=== PATIENT | male | born 1970 | race Caucasian/White ===

== ENCOUNTER 2017-07-09 23:06 | Observation (INO) | payer OTHER ==
[~2017-07-09] VITALS: Ht 182.9 cm; Wt 85.7 kg
[~2017-07-09 23:06] MED LIST: ALLOPURINOL100 MG PO; ASPIRIN81 MG PO; COREG3.125 MG PO; LASIX40 MG PO; LISINOPRIL10 MG PO; METOPROLOL TART25 MG PO; NITROSTAT0.3 MG SL; SPIRONOLACTONE25 MG PO; SYNTHROID125 MCG PO; XARELTO15 MG PO
--- OUTSIDE RECORDS SUMMARY | 2017-07-09 23:09 | XMS REPORT | Clinical Summary ---
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 Disp. Refills Start End Date Status Date carvedilol (COREG) 6.25 Take 6.25 mg by mouth 2 Active MG tablet (two) times a day with meals. aspirin (ECOTRIN) 81 MG Take 81 mg by mouth every Active enteric coated tablet morning. lisinopril Take 10 mg by mouth every Active (PRINIVIL,ZESTRIL) 10 mg morning. tablet levothyroxine (SYNTHROID, Take 25 mcg by mouth Active LEVOXYL) 25 mcg tablet daily before breakfast. allopurinol (ZYLOPRIM) Take 100 mg by mouth Active 100 MG tablet every morning. spironolactone Take 25 mg by mouth every Active (ALDACTONE) 25 MG tablet morning. furosemide (LASIX) 40 mg Take 40 mg by mouth 2 Active tablet (two) times a day. nitroglycerin (NITROSTAT) Place 0.4 mg under the Active 0.4 MG SL tablet tongue every 5 (five) minutes as needed for chest pain. metoprolol tartrate Take 25 mg by mouth 2 Active (LOPRESSOR) 25 mg tablet (two) times a day. rivaroxaban (XARELTO) 15 Take 15 mg by mouth 2 Active mg tablet (two) times a day. lisinopril Take 10 mg by mouth. 10/04/19 Discontin (PRINIVIL,ZESTRIL) 5 mg 17 ued tablet SPIRONOLACTONE, BULK, by Miscellaneous route. 10/04/19 Discontin MISC 17 ued furosemide (LASIX) 20 mg Take 40 mg by mouth 2 10/04/19 Discontin tablet (two) times a day. 17 ued METOPROLOL SUCCINATE ORAL Take by mouth daily. 10/04/19 Discontin 17 ued ALLOPURINOL ORAL Take 100 mg by mouth 10/04/19 Discontin daily. 17 ued LEVOTHYROXINE SODIUM 0.25 mcg daily. 10/04/19 Discontin (LEVOTHYROXINE, BULK, 17 ued MISC) traMADol (ULTRAM) 50 mg Take 1 tablet (50 mg 8 tablet 0 11/12/1909/27 tablet total) by mouth every 6 17 17 (six) hours as needed for severe pain for up to 2 days. naproxen (NAPROSYN) 500 Take 1 tablet (500 mg 20 tablet 0 11/12/19 11/22/19 MG tablet total) by mouth 2 (two) 17 17 times a day as needed (pain) for up to 10 days. rivaroxaban (XARELTO) 15 Take 1 tablet (15 mg 42 tablet 0 01/09/20 01/30/20 mg tablet total) by mouth 2 (two) 17 17 times a day for 21 days. traMADol (ULTRAM) 50 mg TK 1 T PO Q 8 H PRN FOR 0 01/10/20 02/14/20 Discontin tablet SEVERE PAIN 17 17 ued acetaminophen-codeine TK 1 T PO Q 4 H PRN 0 11/07/19 02/14/20 Discontin (TYLENOL WITH CODEINE #3) SEVERE PAIN 17 17 ued 300-30 mg per tablet acetaminophen-codeine Take 1 tablet by mouth 20 tablet 0 02/16/20 (TYLENOL WITH CODEINE #3) every 4 (four) hours as 17 17 300-30 mg per tablet needed (Pain) for up to 20 doses. acetaminophen-codeine Take 1 tablet by mouth 10 tablet 0 03/15/20 (TYLENOL WITH CODEINE #3) every 8 (eight) hours as 17 17 300-30 mg per tablet needed for moderate pain for up to 5 days. Active Problems Problem Noted Date Syncope 06/12/2017 Chest pain, rule out acute myocardial infarction 02/14/2017 Acute deep vein thrombosis (DVT) of upper extremity 01/05/2017 Chest pain 08/22/2016 Encounters Date Type Specialty Care Team Description 06/12/2017 Emergency General Internal Medicine Víctor Nguyen Syncope, unspecified - Carlos Parker MD syncope type (Primary 06/13/2017 Alvarez Caputo DO Dx); Jomar Schwartz Chest pain, unspecified Aaron Bender MD type 05/02/2017 Emergency Emergency Medicine Parker Bernstein Chest pain, unspecified MD Mariah type (Primary Dx) 03/29/2017 Emergency Emergency Medicine Frank Strickland MD 03/14/2017 Emergency General Internal Medicine Vick Webber MD Chest pain, unspecified - Mae Peterson MD type (Primary Dx) 03/15/2017 02/13/2017 Emergency General Surgery Semaj Carvajal Chest pain , rule out - MD Mario acute myocardial 02/15/2017 Semaj Rowe MD infarction (Primary Dx) 01/05/2017 [facility] General Internal Medicine Dewey Astorga MD Acute deep vein - Encounter Mae Peterson MD thrombosis (DVT) of other 01/08/2017 Jovanni Sparrow MD vein of upper extremity (Primary Dx); Acute deep vein thrombosis (DVT) of brachial vein, unspecified laterality 11/11/2016 Emergency Emergency Medicine Vick Webber MD Chest pain, unspecified type (Primary Dx) 10/03/2016 Emergency Emergency Medicine Devonte Miller MD Atypical chest pain (Primary Dx) 09/12/2016 Emergency Emergency Medicine Shantanu Arroyo MD Atypical chest pain (Primary Dx) 09/03/2016 Emergency Emergency Medicine Dewey Astorga MD Chest pain, unspecified - type (Primary Dx) 09/04/2016 08/22/2016 Emergency General Internal Medicine Misa Bell MD Other chest pain (Primary - Mae Peterson MD Dx) 08/23/2016 Jovanni Sparrow MD 08/14/2016 Conversion Mathew Salgado Encounter MD 08/14/2016 Orders Only General Internal Medicine Mathew Salgado MD 08/14/2016 Orders Only General Internal Medicine Amee Camargo MD 08/13/2016 [facility] General Internal Medicine Physician, Emergency, MD - Encounter Nathaniel Mclain DO 08/14/2016 Amee Camargo MD 08/13/2016 Orders Only Emergency Medicine Devonte Miller MD 07/29/2016 [facility] Emergency Medicine Physician, Emergency, MD - Encounter Lorri Nance, 07/30/2016 Amee Hoskins MD 07/29/2016 Conversion Amee Camargo MD Encounter 07/29/2016 Orders Only Amee Camargo MD 07/29/2016 Orders Only Amee Camargo MD 07/29/2016 Orders Only Emergency Medicine Anton Noonan, DO after 07/08/2016 Family History Medical History Relation Name Comments No Known Problems Father No Known Problems Mother Relation Name Status Comments Father Alive Mother Alive Social History Tobacco Use Types Packs/Day Years Used Date Former Smoker Cigarettes 0.5 12 Quit: 10/02/2014 Smokeless Tobacco: Never Used Tobacco Cessation: Counseling Given: No Alcohol Use Drinks/Week oz/Week Comments Yes socially Sex Assigned at Date Recorded Not on file Last Filed Vital Signs Vital Sign Reading Time Taken Blood Pressure 129/83 06/13/2017 10:50 AM SHOE SALESPERSON Pulse 66 06/13/2017 10:50 AM SHOE SALESPERSON Temperature 36.4 C (97.5 F) 06/13/2017 10:50 AM SHOE SALESPERSON Respiratory Rate 17 06/13/2017 10:50 AM SHOE SALESPERSON Oxygen Saturation 98% 06/13/2017 10:50 AM SHOE SALESPERSON Inhaled Oxygen - - Concentration Weight 87.6 kg (193 lb 1.6 oz) 06/13/2017 6:00 AM SHOE SALESPERSON Height 182.9 cm (6') 06/12/2017 10:33 PM SHOE SALESPERSON Body Mass Index 26.19 06/13/2017 6:00 AM SHOE SALESPERSON Plan of Treatment Health Maintenance Due Date Last Done Comments INFLUENZA VACCINE 11/08/2016 Implants Implanted Type Area Skirt Clipper Device Expiration Model / Identifier Date Serial / Lot Pacemaker-11/22/2016 Pacemaker Implanted: 11/22/2016 by Franky Stack MD (Quantity not on file) Procedures Procedure Name Priority Date/Time Associated Diagnosis Comments ECHOCARDIOGRAM 2D Routine 06/13/2017 Results for this COMPLETE W MMODE SPECTRAL 8:33 AM SHOE SALESPERSON procedure are in the COLOR DOPPLER (70249) results section. CV STRESS TEST NUCLEAR Routine 02/15/2017 Results for this CARDIO 11:30 AM SHOE SALESPERSON procedure are in the results section. ECHOCARDIOGRAM 2D Routine 02/14/2017 Results for this COMPLETE W MMODE SPECTRAL 4:10 PM SHOE SALESPERSON procedure are in the COLOR DOPPLER (08009) results section. ECHOCARDIOGRAM 2D 08/14/2016 Results for this COMPLETE W MMODE SPECTRAL 3:32 PM CDT procedure are in the COLOR DOPPLER (11032) results section. CV STRESS TEST Routine 08/14/2016 Results for this 2:27 PM CDT procedure are in the results section. ECHOCARDIOGRAM 2D 07/29/2016 Results for this COMPLETE W MMODE SPECTRAL 6:06 PM CDT procedure are in the COLOR DOPPLER (52449) results section. after 07/08/2016 Results * Echocardiogram complete w contrast and 3D if needed (06/13/2017 8:33 AM) Specimen Performing Laboratory [facility] [address] [place] [address] Narrative The left ventricle chamber size is mildly enlarged. There is moderate left ventricular concentric hypertrophy. Left Ventricular ejection fraction is 25 - 30%. Right ventricular size is normal. Left atrium size is moderately dilated. No pericardial effusion The mitral valve appears thickened. Mild mitral valve regurgitation Spectral Doppler shows pseudonormal pattern of left ventricular diastolic filling. * Lipid panel (06/13/2017 4:33 AM) Only the most recent of 5 results within the time period is included. Component Value Ref Range Cholesterol 154 120 - 200 mg/dL Triglycerides 77 50 - 150 mg/dL HDL cholesterol 62 (H) 40 - 60 mg/dL LDL cholesterol 86Comment: Result obtained by direct LDL mg/dL measurement Lipid panel See below interpretation Comment: Total Cholesterol (mg/dL) LDL Cholesterol (mg/dL) <200 Desirable <100 Optimal 200-239 Borderline-high 100-129 Near or above optimal >=240 High 130-159 Borderline-high 160-189 High >=190 Very high HDL Cholesterol (mg/dL) Triglycerides (mg/dL) <40 Low <150 Normal >=60 High 150-199 Borderline-high 200-499 High >=500 Very high Risk Catergories that modify LDL goals. Risk Catergories LDL goal (mg/dL) CHD and CHD risk equivalent <100 (10-year risk >20%) Multiple (2+) risk factors <130 (10-year risk=<20%) 0-1 risk factors <160 (<10-year risk) Defining levels of lipids in metabolic syndrome Triglycerides >=150 mg/dL HDL Cholesterol Men <40 mg/dL Women <50 mg/dL Non-HDL cholesterol is a second target for therapy in persons with high triglycerides (>=200 mg/dL) Specimen Performing Laboratory Plasma specimen [facility] [address] [place] [id number] * Troponin (06/12/2017 11:14 PM) Only the most recent of 31 results within the time period is included. Component Value Ref Range Troponin <0.01 0.00 - 0.60 ng/mL Comment: 0.11 - 1.49 ng/ml May indicate increased risk of acute coronary syndrome. >=1.5 ng/ml Consistent with acute myocardial infarction. The diagnostic value of a single normal or non-diagnostic result is questionable. Serial samples at 2-6 hour intervals are required to rule out acute myocardial injury. Specimen Performing Laboratory Plasma specimen [facility] [address] [place] [address] * Magnesium level (06/12/2017 11:14 PM) Only the most recent of 2 results within the time period is included. Component Value Ref Range Magnesium 1.80 1.60 - 2.40 mg/dL Specimen Performing Laboratory Plasma specimen [facility] [address] [place] [address] * ECG 12 lead (06/12/2017 7:31 PM) Only the most recent of 20 results within the time period is included. Component Value Ref Range Ventricular rate 82 Atrial rate 82 DE interval 122 QRSD interval 96 QT interval 398 QTC interval 464 P axis 1 55 QRS axis 1 48 T wave axis 82 EKG impression Normal sinus rhythm-Cannot rule out Anterior infarct , age undetermined-Abnormal ECG-- Specimen Performing Laboratory [facility] [address] [place] [address] * ECG ED Preliminary Interpretation - NOT AN ORDER (06/12/2017 7:23 PM) Only the most recent of 8 results within the time period is included. Juli Nguyen Jr., MD 06/13/20171:37 PM ECG ED Preliminary Interpretation - Not an Order Performed by: VÍCTOR NGUYEN JR. Authorized by: VÍCTOR NGUYENKA JR. ECG reviewed by ED Physician in the absence of a field reviewer: yes Interpretation: Interpretation: normal Rate: ECG rate:92 ECG rate assessment: normal Rhythm: Rhythm: sinus rhythm Ectopy: Ectopy: none QRS: QRS axis:Normal Conduction: Conduction: normal ST segments: ST segments:Normal T waves: T waves: flattening Flattening:V4, V5 and V6 Q waves: Q waves:III, II and aVF Other findings: Other findings: LVH Comments: QTC noted to be 484 * XR Chest 2 Vw (06/12/2017 7:08 PM) Only the most recent of 10 results within the time period is included. Specimen Performing Laboratory [facility] [address] [place] [address] Narrative EXAMINATION: XR CHEST 2 VW CLINICAL HISTORY: Chest Pain COMPARISON:05/02/2017. IMPRESSION: Left AICD with stable leads. The lungs are clear. No pleural effusion or pneumothorax. The cardiomediastinal silhouette is normal. No acute osseous abnormalities. [facility]-[id number] Procedure Note Interface, Radiology Results Incoming - 06/12/2017 7:13 PM SHOE SALESPERSON EXAMINATION: XR CHEST 2 VW CLINICAL HISTORY: Chest Pain COMPARISON: 05/02/2017. IMPRESSION: Left AICD with stable leads. The lungs are clear. No pleural effusion or pneumothorax. The cardiomediastinal silhouette is normal. No acute osseous abnormalities. [facility]-[id number] * Estimated GFR (06/12/2017 5:51 PM) Only the most recent of 17 results within the time period is included. Component Value Ref Range GFR Non Af Amer >90 mL/min/1.73 m2 GFR Af Amer >90 mL/min/1.73 m2 Comment: Chronic kidney disease: <60 mL/min/1.73m2 Kidney failure: <15 mL/min/1.73m2 The estimated GFR is calculated from the IDMS-traceable Modification of Diet in Renal Disease Equation. The accuracy of the calculation is poor when the creatinine is normal. Calculated values >90 mL/min/1.73m2 are not reported. This equation has not been validated in children (<18 years), women, the elderly (>70 years), or ethnic groups other than Caucasians and Americans. Specimen Performing Laboratory Plasma specimen [facility] [address] [place] [address] * CBC with platelet and differential (06/12/2017 5:51 PM) Only the most recent of 17 results within the time period is included. Component Value Ref Range WBC 7.5 4.2 - 11.0 k/uL RBC 4.40 4.04 - 5.86 m/uL HGB 13.5 13.0 - 17.3 g/dL HCT 39.5 34.0 - 45.0 % MCV 89.8 80.0 - 98.0 fL MCH 30.7 27.0 - 34.0 pg MCHC 34.2 31.5 - 36.5 g/dL RDW - SD 44.4 37.0 - 51.0 fL MPV 9.9 7.4 - 10.4 fL Platelet count 203 150 - 400 k/uL Nucleated RBC 0.00 /100 WBC Neutrophils 55.2 36.0 - 66.0 % Lymphocytes 33.2 24.0 - 44.0 % Monocytes 8.0 (H) 0.0 - 6.0 % Eosinophils 2.8 0.0 - 6.0 % Basophils 0.5 0.0 - 1.2 % Immature granulocytes 0.3 0.0 - 1.0 % Specimen Performing Laboratory Blood [facility] [address] [place] [address] * B natriuretic peptide (06/12/2017 5:51 PM) Only the most recent of 12 results within the time period is included. Component Value Ref Range BNP 29 0 - 100 pg/mL Specimen Performing Laboratory Blood [facility] [address] [place] [address] * Comprehensive metabolic panel (06/12/2017 5:51 PM) Only the most recent of 11 results within the time period is included. Component Value Ref Range Sodium 140 135 - 150 mEq/L Potassium 3.5 3.5 - 5.0 mEq/L Chloride 104 100 - 109 mEq/L CO2 26 24 - 32 mmol/L Anion gap 10 7 - 15 mEq/L Comment: Starting from July , anion gap calculation no longer incorporates potassium. Please note the change. BUN 11 7 - 18 mg/dL Creatinine 0.9 0.8 - 1.5 mg/dL Glucose 89 65 - 100 mg/dL Calcium 8.5 (L) 8.6 - 10.7 mg/dL Protein 7.3 6.3 - 8.2 g/dL Albumin 3.2 3.2 - 5.0 g/dL A/G ratio 0.8 0.7 - 3.8 Alkaline phosphatase 66 30 - 120 U/L AST 28 15 - 37 U/L ALT 39 30 - 65 U/L Total bilirubin 0.3 0.2 - 1.2 mg/dL Specimen Performing Laboratory Plasma specimen [facility] [address] [place] [address] * Thyroid stimulating hormone (03/15/2017 8:04 AM) Only the most recent of 4 results within the time period is included. Component Value Ref Range TSH 5.10 (H) 0.38 - 4.82 uIU/mL Specimen Performing Laboratory Plasma specimen [facility] AND [facility] [address] [place], [place] [id number] * T4, free (03/15/2017 8:04 AM) Only the most recent of 2 results within the time period is included. Component Value Ref Range T4, free 0.95 0.70 - 1.61 ng/dL Specimen Performing Laboratory Plasma specimen [facility] OF [facility]OLOG[facility] AND [facility] [address] [place] [id number] * Hemoglobin A1c (03/15/2017 4:45 AM) Component Value Ref Range Hemoglobin A1C 5.1 4.0 - 6.0 % Comment: Less than 6% - Goal of therapy for Type II Diabetes Less than 7%- Goal of therapy for Type I Diabetes Less than 8%- Acceptable control for Type I or Type II Diabetes Greater than 8%- Unacceptable control; action indicated. (A DA94) Specimen Performing Laboratory Blood [facility] [address] [place] [address] * Prothrombin time with INR (03/14/2017 3:52 PM) Only the most recent of 10 results within the time period is included. Component Value Ref Range Prothrombin time 14.0 12.0 - 15.0 sec INR 1.07 0.92 - 1.12 Comment: For patients on anticoagulant therapy, reference ranges below: Indication: INR Value Treatment of Venous Thrombosis, 2.0-3.0 pulmonary emboli, or prophylaxis of a venous thrombosis, or systemic emboli. High dose, high risk patients 3.0-4.5 with mechanical valves. NOTE: INR values over 3.0 are sometimes associated with gastrointestinal hemorrhage, especially values over 4.0. Specimen Performing Laboratory Blood [facility] [address] [place] [address] * Creatine kinase, total (CPK) (03/14/2017 3:52 PM) Only the most recent of 14 results within the time period is included. Component Value Ref Range Creatine kinase 49 (L) 61 - 224 U/L Specimen Performing Laboratory Plasma specimen [facility] [address] [facility] [place] [address] * Cv stress procedure (02/15/2017 11:30 AM) Component Value Ref Range Resting HR 69 Peak MET Achieved 1.0 Protocol Name LEXISCAN Time in Exercise Phase 00:01:00 Max Systolic BP 120 Max Diastolic BP 72 Max Heart Rate 99 Max Predicted Heart Rate 176 Target HR Formula (220 - Age)*100% Reason for Termination Protocol Complete Stress Test Impression Waveform interpreted in report associated with image study. No interpretation is provided as part of this Stress ECG report.-Electronically Signed By Khloe Ty MD ([id number]), technical writer and editor Rabia Alex ([id number]) on 02/15/2017 10:39:05 AM-Also Electronically Signed By Khloe Ty MD [id number]), technical writer and editor Rabia Alex ([id number]) on 02/15/2017 10:46:43 AM Target HR 149.60 bpm Specimen Performing Laboratory [facility] [address] [place] [address] * Myocardial perfusion (02/15/2017 11:30 AM) Component Value Ref Range Target HR 149.60 bpm Resting HR 61 BPM Resting BP 110/72 mmHg [facility] [address] [place] [address] Narrative There are no perfusion defects. Study Quality: good. Abnormal left ventricular systolic function. * Basic metabolic panel (02/15/2017 5:50 AM) Only the most recent of 6 results within the time period is included. Component Value Ref Range Sodium 138 135 - 148 mEq/L Potassium 4.1 3.5 - 5.0 mEq/L Chloride 98 98 - 112 mEq/L CO2 30 24 - 31 mEq/L Anion gap 10 7 - 15 mEq/L Comment: Starting from July , anion gap calculation no longer incorporates potassium. Please note the change. BUN 14 6 - 20 mg/dL Creatinine 1.2 0.7 - 1.2 mg/dL Glucose 87 65 - 99 mg/dL Calcium 9.3 8.3 - 10.2 mg/dL Specimen Performing Laboratory Plasma specimen [facility] DEPARTMENT OF PATHOLOGY AND GENOMIC MEDICINE [address] [place] [address] * Echocardiogram complete w contrast and 3D if needed (02/14/2017 4:10 PM) Component Value Ref Range AoV Area, Vmax 2.86 cm2 AoV Area, VTI 3.23 cm2 AoV Mean PG 3.91 mmHg AoV Peak PG 7.32 mmHg AoV Vmax 1.35 m/s AoV VTI 0.21 m IVS,d 0.69 0.6 - 1.2 cm LV,d 5.59 cm LV,s 5.09 cm LVOT Diam,S 2.46 cm LVOT Vmax 0.81 m/s LVOT VTI 0.14 m LVPWD,d 0.90 cm RVSP (TR) 15.42 mmHg TR Vpeak 1.61 mm/s MV E A ratio 1.40 mmHg TR pk grad 10.42 mmHg E wave decelartion time 227.87 msec MV Peak A Edson 0.38 m/s MV valve area p 1/2 6.17 cm2 method MV Peak E Edson 0.53 m/s MV stenosis pressure 1/2 35.68 ms time AV LVOT peak gradient 2.64 mmHg RVSP 15.42 mmHg LV SYS VOL 123.10 ml LV TIMMONS VOL 153.28 ml LV SV Teich 2D 30.18 ml LVOT SI 31.93 ml/m2 AoV Cusp sep 2.14 AoV Vmn 0.91 IVS s 2D 0.96 LA Ao Ratio Mmode 1.10 LVOT Vmn 0.54 Pt Size 182.88 Pt Wt 88.45 PV AT 124.57 msec LVOT mean grad 1.36 mmHg LVPW s PLAX 0.98 cm MV Decel slope 2.33 m/s2 Velocity Ratio (V1/V2) 0.60 m/s EF 19.69 % E/A ratio 1.39 LVOT area 4.75 cm2 LA diam s 3.70 cm LA area s A4C 20.50 cm2 Aortic Root 3.30 D E excurs 1.70 E f slope 0.14 E prime lat 0.07 E suyapa sept 0.06 PV acc T slope 4.50 Specimen Performing Laboratory [facility] [address] [place] [address] Narrative The left ventricle chamber size is moderately enlarged. Left ventricular systolic function severely impaired . Left Ventricular ejection fraction is 20 - 25%. Right ventricular size is normal. No pericardial effusion * Pv duplex venous upper extremity (02/14/2017 1:40 PM) Only the most recent of 2 results within the time period is included. Specimen Performing Laboratory [facility] [address] [place] [address] Narrative There is evidence of DVT in the left upper extremity involving the subclavian vein. Additionally, there is thrombosis of the Cephalic vein distally. * CT Angiogram Chest W Contrast Abdomen W Contrast Pelvis W Contrast (2016 11:52 PM) Specimen Performing Laboratory [facility] [address] [place] [address] Narrative Examination:CT ANGIOGRAM CHEST ABDOMEN PELVIS W AND OR WITHOUT CONTRAST Clinical History: chest pain radiating to scapula wL arm paresthesias. Asses for dissection.Assess for PE if possible Comparison: None. Findings: CT angiogram of the chest, abdomen, and pelvis was performed after intravenous contrast. Computer reformatted images and 3-D MIPS images were obtained and archived. CHEST: No aortic dissection or aneurysm is seen. There are no filling defects within the visualized pulmonary arteries. No consolidation or pleural effusion is seen. No mediastinal hematoma or lymphadenopathy is seen. Old rib fracture is seen at the right posterior 10th rib. Remainder of the visualized bony structures shows no acute abnormality. No pneumothorax is seen. ABDOMEN AND PELVIS: No aortic dissection or aneurysm is seen. The celiac trunk, spleen mesenteric artery, and inferior mesenteric artery are widely patent and within normal limits. Bilateral single main renal arteries are widely patent and unremarkable. The bilateral common iliac, internal iliac, and external iliac arteries are widely patent and unremarkable. The liver, spleen, pancreas, and adrenal glands are unremarkable. The gallbladder is slightly contracted but unremarkable. The kidneys are within normal limits without hydronephrosis. The appendix is visualized and unremarkable. No bowel wall thickening or fat stranding is seen. No bowel dilatation is seen. Colonic diverticulosis is seen. No free air or fluid is seen. Urinary bladder is unremarkable. IMPRESSION: 1. No aortic dissection or aneurysm. 2. No acute abnormality identified in the chest. 3. Colonic diverticulosis without evidence of inflammation. 4. Otherwise no acute abnormality identified in the abdomen or pelvis. [facility]-[id number] Procedure Note Hm Interface, Radiology Results Incoming - 02/14/2017 12:17 AM SHOE SALESPERSON Examination: CT ANGIOGRAM CHEST ABDOMEN PELVIS W AND OR WITHOUT CONTRAST Clinical History: chest pain radiating to scapula w L arm paresthesias. Asses for dissection. Assess for PE if possible Comparison: None. Findings: CT angiogram of the chest, abdomen, and pelvis was performed after intravenous contrast. Computer reformatted images and 3-D MIPS images were obtained and archived. CHEST: No aortic dissection or aneurysm is seen. There are no filling defects within the visualized pulmonary arteries. No consolidation or pleural effusion is seen. No mediastinal hematoma or lymphadenopathy is seen. Old rib fracture is seen at the right posterior 10th rib. Remainder of the visualized bony structures shows no acute abnormality. No pneumothorax is seen. ABDOMEN AND PELVIS: No aortic dissection or aneurysm is seen. The celiac trunk, spleen mesenteric artery, and inferior mesenteric artery are widely patent and within normal limits. Bilateral single main renal arteries are widely patent and unremarkable. The bilateral common iliac, internal iliac, and external iliac arteries are widely patent and unremarkable. The liver, spleen, pancreas, and adrenal glands are unremarkable. The gallbladder is slightly contracted but unremarkable. The kidneys are within normal limits without hydronephrosis. The appendix is visualized and unremarkable. No bowel wall thickening or fat stranding is seen. No bowel dilatation is seen. Colonic diverticulosis is seen. No free air or fluid is seen. Urinary bladder is unremarkable. IMPRESSION: 1. No aortic dissection or aneurysm. 2. No acute abnormality identified in the chest. 3. Colonic diverticulosis without evidence of inflammation. 4. Otherwise no acute abnormality identified in the abdomen or pelvis. [facility]-[id number] * Partial thromboplastin time, activated (02/13/2017 9:00 PM) Only the most recent of 6 results within the time period is included. Component Value Ref Range PTT 29.7 23.0 - 36.0 sec Comment: PTT therapeutic range for unfractionated heparin is 61.0-112.0 seconds which corresponds to Anti-Xa 0.3-0.7 U/ml. Specimen Performing Laboratory Blood [facility] [address] [place] [address] * Hepatic function panel (02/13/2017 9:00 PM) Component Value Ref Range Albumin 4.0 3.5 - 5.0 g/dL Total bilirubin 0.5 0.0 - 1.2 mg/dL Bilirubin direct <0.1 0.0 - 0.3 mg/dL Alkaline phosphatase 72 40 - 129 U/L Protein 7.3 6.3 - 8.3 g/dL Comment: 4.6-7.0 g/dL 1 week 4.4-7.6 g/dL 7 months-1year 5.1-7.3 g/dL 1-2 years 5.6-7.5 g/dL >3 years 6.0-8.0 g/dL 18-150 6.3-8.3 g/dL ALT 15 5 - 50 U/L AST 17 10 - 50 U/L Specimen Performing Laboratory Plasma specimen [facility] AND [facility] [address] [address] * Anti Xa, unfractionated (01/08/2017 9:36 AM) Only the most recent of 10 results within the time period is included. Component Value Ref Range Anti Xa, unfractionated 0.79 (H)Comment: Therapeutic Range: 0.30 - 0.70 0.30 - 0.70 U/mL U/mL Specimen Performing Laboratory Blood [facility] [address] [place] [address] * Manual differential (01/07/2017 5:30 AM) Component Value Ref Range Manual differential PERFORMED Neutrophils 60.0 36.0 - 66.0 % Lymphocytes 31.0 24.0 - 44.0 % Monocytes 7.0 (H) 0.0 - 6.0 % Eosinophils 2.0 0.0 - 6.0 % Basophils 0.0 0.0 - 1.2 % Metamyelocytes 0 0 - 1 % Promyelocytes 0 0 - 1 % Platelet slide review Marcella adequate Specimen Performing Laboratory [facility] [address] [place] [address] * Uric acid level (01/05/2017 8:27 PM) Component Value Ref Range Uric acid 5.1 3.9 - 7.8 mg/dL Specimen Performing Laboratory Plasma specimen [facility] [address] [place] [address] * XR Chest 1 Vw Portable (11/11/2016 1:45 PM) Specimen Performing Laboratory [facility] [address] [place] [address] Narrative EXAMINATION:XR CHEST 1 VW PORTABLE CLINICAL HISTORY:Chest Pain COMPARISON:October 03, 2016 FINDINGS: Heart size is within normal limits. The mediastinum is unremarkable. The lungs are clear. IMPRESSION: No acute finding is visualized [id number] Procedure Note Interface, Radiology Results Incoming - 11/11/2016 2:21 PM CDT EXAMINATION: XR CHEST 1 VW PORTABLE CLINICAL HISTORY: Chest Pain COMPARISON: October 03, 2016 FINDINGS: Heart size is within normal limits. The mediastinum is unremarkable. The lungs are clear. IMPRESSION: No acute finding is visualized [id number] * CK-MB (09/03/2016 10:28 PM) Only the most recent of 8 results within the time period is included. Component Value Ref Range CK-MB 1.4 0.5 - 3.2 ng/mL Specimen Performing Laboratory Plasma specimen [facility] [address] [place] [address] * Echocardiogram complete w contrast and 3D if needed (08/14/2016 3:32 PM) Specimen Performing Laboratory [facility] [address] [place] [address] Narrative Transthoracic Echocardiogram Report [address] [place] [address] Name:PAU WAGNER Sex: M Date: 2016 Encounter:: 1970 Time: 3:32:06 PM 46 yearsHeight: 72 in Room #:[id number] Weight: 198.0 lbs BP:134/70 mmHg BSA: 2.1 m Ref. Physician:Amee Camargo It Technical Support Specialist: Ty Mccollum Indications: Chest pain Study Details: Complete Echocardiogram. The images were of adequate diagnostic quality. The patient was awake. Report Creation: 08/14/2016 at 3:47:24 PM Summary: 1. The left ventricular chamber size is increased. 2. Left ventricular ejection fraction is moderately depressed, estimated at 30- 35%. 3. Mild mitral valve regurgitation. Interpretation: Left Ventricle: The left ventricular chamber size is increased. Left ventricular ejection fraction is 30-35%. Right Ventricle: Normal right ventricular size, wall thickness, and global function. Left Atrium: The left atrium is normal. Right Atrium: The right atrium is normal. Aortic Valve: The aortic valve is normal. No evidence of aortic valve stenosis with a valve area of 1.90 cm and a mean gradient of 4.3 mmHg. No evidence of significant aortic valve regurgitation. Mitral Valve: Mild mitral valve regurgitation. Tricuspid Valve: Trace tricuspid valve regurgitation. Pulmonic Valve: The pulmonic valve appears normal. No evidence of pulmonary valve stenosis. No evidence of significant pulmonary valve regurgitation. Pericardium: No pericardial effusion seen. Measurements: Dimensions(2D) In cm Normals DimensionsIn cm Normals Aortic Root3.20 cm 2.0-3.7cm Left Atrium(ES) 3.49 cm 1.9-4.0cm Left Ventricle LA Volume End Diastole 6.1 cm3.7-5.6cm RV Diastole 0-7- 2.3 cm End Systole5.2 cm1.8-4.2cm IVS(D) 0.84 cm 0.6-1.1cm LVPW(D)0.9 cm0.6-1.1cm LV %FS 15.2 % LVEF(2-D)39 %>50% LV Diastolic Function: MV Peak E: 0.85 m/s Decel Time: 236 msec MV Peak A: 0.60 m/s E/A Ratio: 1.42 Spectral Doppler Analysis (Where Applicable): Mitral Valve: MV Max Edson: 0.86 m/s MV P1/2 Time: 68.43 msec MV Mean Grad: 1.1 mmHg MV Area, PHT: 3.21 cm Mitral Insufficiency by PISA: MR Volume:MR Flow Rate:MR REOA: MR VTI:2.07 m MR PISA: MR PISA Radius Aortic Valve: AoV Max Edson:1.44 m/s AoV Peak P.3 mmHg AoV Mean P.3 mmHg LVOT Vmax:0.75 m/s LVOT VTI: 0.15 m LVOT Diameter: 2.15 cm AoV Area, Vmax: 1.89 cm AoV Area VTI: 1.90 cm AoV Area Vmn:1.80 cm Tricuspid Valve and PA/RV Systolic Pressure: TR Max Velocity: 2.16 m/s RA Pressure: RVSP/PASP: Pulmonic Valve: PV Max Velocity: 1.23 m/s PV Max P.1 mmHg PV Mean PG: Pulmonic Insufficiency: Final Procedure Note Interface, Radiology Results In - 08/14/2016 4:48 PM CDT Transthoracic Echocardiogram Report [address] [place] [address] Name: PAU WAGNER Sex: M Date: 08/14/2016 Encounter: : 1970 Time: 3:32:06 PM Age: 46 years Height: 72 in Room #: [id number] Weight: 198.0 lbs BP: 134/70 mmHg BSA: 2.1 m Ref. Physician: Amee Camargo It Technical Support Specialist: Ty Mccollum Indications: Chest pain Study Details: Complete Echocardiogram. The images were of adequate diagnostic quality. The patient was awake. Report Creation: 08/14/2016 at 3:47:24 PM Summary: 1. The left ventricular chamber size is increased. 2. Left ventricular ejection fraction is moderately depressed, estimated at 30- 35%. 3. Mild mitral valve regurgitation. Interpretation: Left Ventricle: The left ventricular chamber size is increased. Left ventricular ejection fraction is 30-35%. Right Ventricle: Normal right ventricular size, wall thickness, and global function. Left Atrium: The left atrium is normal. Right Atrium: The right atrium is normal. Aortic Valve: The aortic valve is normal. No evidence of aortic valve stenosis with a valve area of 1.90 cm and a mean gradient of 4.3 mmHg. No evidence of significant aortic valve regurgitation. Mitral Valve: Mild mitral valve regurgitation. Tricuspid Valve: Trace tricuspid valve regurgitation. Pulmonic Valve: The pulmonic valve appears normal. No evidence of pulmonary valve stenosis. No evidence of significant pulmonary valve regurgitation. Pericardium: No pericardial effusion seen. Measurements: Dimensions(2D) In cm Normals Dimensions In cm Normals Aortic Root 3.20 cm 2.0-3.7cm Left Atrium(ES) 3.49 cm 1.9-4.0cm Left Ventricle LA Volume End Diastole 6.1 cm 3.7-5.6cm RV Diastole 0-7-2.3 cm End Systole 5.2 cm 1.8-4.2cm IVS(D) 0.84 cm 0.6-1.1cm LVPW(D) 0.9 cm 0.6-1.1cm LV %FS 15.2 % LVEF(2-D) 39 % >50% LV Diastolic Function: MV Peak E: 0.85 m/s Decel Time: 236 msec MV Peak A: 0.60 m/s E/A Ratio: 1.42 Spectral Doppler Analysis (Where Applicable): Mitral Valve: MV Max Edson: 0.86 m/s MV P1/2 Time: 68.43 msec MV Mean Grad: 1.1 mmHg MV Area, PHT: 3.21 cm Mitral Insufficiency by PISA: MR Volume: MR Flow Rate: MR REOA: MR VTI: 2.07 m MR PISA: MR PISA Radius Aortic Valve: AoV Max Edson: 1.44 m/s AoV Peak P.3 mmHg AoV Mean P.3 mmHg LVOT Vmax: 0.75 m/s LVOT VTI: 0.15 m LVOT Diameter: 2.15 cm AoV Area, Vmax: 1.89 cm AoV Area VTI: 1.90 cm AoV Area Vmn: 1.80 cm Tricuspid Valve and PA/RV Systolic Pressure: TR Max Velocity: 2.16 m/s RA Pressure: RVSP/PASP: Pulmonic Valve: PV Max Velocity: 1.23 m/s PV Max P.1 mmHg PV Mean PG: Pulmonic Insufficiency: Final * Cv exercise treadmill stress (no imaging) (08/14/2016 2:27 PM) Component Value Ref Range Resting HR 56 Resting BP 143 Peak MET Achieved 1.0 Protocol Name LEXISCAN Time in Exercise Phase 00:00:59 Max Systolic BP 151 Max Diastolic BP 84 Max Heart Rate 117 Max Predicted Heart Rate 176 Target HR Formula (220 - Age)*85% Test Indication Chest Discomfort Arrhy During Ex ventricular premature beats ECG Interp Before EX Normal ECG Interp During Ex none Ex Summary Comment Normal stress test, MYOVIEW TO FOLLOW Chest Pain Statement limiting Overall HR Response to appropriate Exercise Overall BP Response To normal resting BP - appropriate response Exercise Reason for Termination Protocol Completed... Stress Test Impression Normal stress test, Myoview to follow-tolerated well, had some chest pain, unchanged from baseline. -Nuclear report pending - Specimen Performing Laboratory [facility] [address] [place] [address] * CT Angiogram Pe Chest (08/13/2016 11:24 PM) Only the most recent of 2 results within the time period is included. Specimen Performing Laboratory [facility] [address] [place] [address] Narrative CTA PE CHEST INDICATION:Chest pain TECHNIQUE: Multidetector CT of the chest with attention to the pulmonary arteries was performed following the intravenous administration of iodinated contrast. Standard multiplanar reformatted images were performed.In addition, postprocessed 3D MIP images were also performed for CT angiography. CT imaging was performed with iterative reconstruction technique and/or automated exposure control to reduce radiation dose. COMPARISON:07/29/2016. FINDINGS: PULMONARY ARTERIES:The pulmonary arteries are diagnostically opacified without findings for acute pulmonary embolus. HEART AND GREAT ARTERIES:The heart is normal in size without pericardial effusion. The aorta and great vessels are unremarkable for phase of scanning. MEDIASTINUM AND JESSICA: No mass or hematoma is identified.No enlarged lymph nodes are seen.Trachea and central airways are patent. LUNGS:Aside from subsegmental bibasilar atelectasis, the lungs are clear. PLEURA: No pneumothorax or effusion. CHEST WALL:There are no acute osseous abnormalities. VISUALIZED ABDOMEN: No acute findings. IMPRESSION: No pulmonary embolism or acute pulmonary infiltrate. [facility]-[id number] Procedure Note Interface, Radiology Conversion - 08/13/2016 11:35 PM CDT CTA PE CHEST INDICATION: Chest pain TECHNIQUE: Multidetector CT of the chest with attention to the pulmonary arteries was performed following the intravenous administration of iodinated contrast. Standard multiplanar reformatted images were performed. In addition, postprocessed 3D MIP images were also performed for CT angiography. CT imaging was performed with iterative reconstruction technique and/or automated exposure control to reduce radiation dose. COMPARISON: 07/29/2016. FINDINGS: PULMONARY ARTERIES: The pulmonary arteries are diagnostically opacified without findings for acute pulmonary embolus. HEART AND GREAT ARTERIES: The heart is normal in size without pericardial effusion. The aorta and great vessels are unremarkable for phase of scanning. MEDIASTINUM AND JESSICA: No mass or hematoma is identified. No enlarged lymph nodes are seen. Trachea and central airways are patent. LUNGS: Aside from subsegmental bibasilar atelectasis, the lungs are clear. PLEURA: No pneumothorax or effusion. CHEST WALL: There are no acute osseous abnormalities. VISUALIZED ABDOMEN: No acute findings. IMPRESSION: No pulmonary embolism or acute pulmonary infiltrate. [facility]-[id number] * XR Chest 1 Vw (08/13/2016 8:03 PM) Specimen Performing Laboratory [facility] [address] [place] [address] Narrative EXAMINATION:CHEST 1 VIEW PA AP CLINICAL HISTORY:Chest pain COMPARISON:07/29/2016 IMPRESSION: No acute cardiopulmonary disease. FINDINGS: The cardiomediastinal silhouette, lungs, and regional skeletal structures are within normal limits for age. Procedure Note Interface, Radiology Conversion - 08/13/2016 8:49 PM CDT EXAMINATION: CHEST 1 VIEW PA AP CLINICAL HISTORY: Chest pain COMPARISON: 07/29/2016 IMPRESSION: No acute cardiopulmonary disease. FINDINGS: The cardiomediastinal silhouette, lungs, and regional skeletal structures are within normal limits for age. * Echocardiogram complete w contrast and 3D if needed (07/29/2016 6:06 PM) Specimen Performing Laboratory [facility] [address] [place] [address] Narrative Transthoracic Echocardiogram Report [address] [place] [address] Name:PAU WAGNER Sex: M Date: 2016 Encounter:: 1970 Time: 6:06:03 PM 46 yearsHeight: 72 in Room #:OPTU11 Weight: 200.0 lbs BP:134/80 mmHg BSA: 2.1 m Ref. Physician:Mickey Schulz MD It Technical Support Specialist: Gaetano Brown Indications: Chest Pain Study Details: Complete Echocardiogram. This was a technically fair study. The patient was awake. Report Creation: 07/29/2016 at 7:38:57 PM Summary: 1. Left ventricular ejection fraction is severely depressed, estimated at 20-25 % with global hypokinesia and moderate LV dilatation. 2. Mild concentric left ventricular hypertrophy. 3. Normal right ventricular size, wall thickness, and global function. Unalbe to comment on LV systolic function. 4. Mild mitral valve regurgitation. 5. No Pericardial effusion. 6. No significnat chnage compared to echo of 05/24/2016 Interpretation: Left Ventricle: The left ventricular chamber size is increased. Left ventricular ejection fraction is 20-25%. Mild concentric left ventricular hypertrophy. LV wall Scoring: There is diffuse hypokinesis. Right Ventricle: Normal right ventricular size, wall thickness, and global function. Left Atrium: The left atrium is normal. Right Atrium: The right atrium is normal. Aortic Valve: The aortic valve is trileaflet and is normal. No evidence of aortic valve stenosis with a valve area of 1.78 cm and a mean gradient of 3.6 mmHg. No significant aortic valve regurgitation. Mitral Valve: The mitral valve appears normal. No evidence of mitral valve stenosis. Mild mitral valve regurgitation. Tricuspid Valve: The tricuspid valve appears normal. No evidence of tricuspid valve stenosis. No significant tricuspid valve regurgitation. Pulmonic Valve: No evidence of pulmonary valve stenosis. No significant pulmonary valve regurgitation. Pericardium: No pericardial effusion seen. Aorta: Aortic root is normal. Venous: Pulmonary veins were not recorded in this study. Measurements: Dimensions(2D) In cm Normals DimensionsIn cm Normals Aortic Root2.0-3.7cm Left Atrium(ES) 2.93 cm 1.9-4.0cm Left Ventricle LA Volume End Diastole 6.3 cm3.7-5.6cm RV Diastole 0-7- 2.3 cm End Systole5.6 cm1.8-4.2cm IVS(D) 0.90 cm 0.6-1.1cm LVPW(D)1.3 cm0.6-1.1cm LV %FS 11.0 % LVEF(2-D)30 %>50% LV Diastolic Function: MV Peak E: 0.80 m/s Decel Time: 199 msec MV Peak A: 0.65 m/s E/A Ratio: 1.22 Spectral Doppler Analysis (Where Applicable): Mitral Valve: MV Max Edson: 0.91 m/s MV P1/2 Time: 57.70 msec MV Mean Grad: 1.7 mmHg MV Area, PHT: 3.81 cm Mitral Insufficiency by PISA: MR Volume:MR Flow Rate:MR REOA: MR VTI:1.91 m MR PISA: MR PISA Radius Aortic Valve: AoV Max Edson:1.33 m/s AoV Peak P.1 mmHg AoV Mean P.6 mmHg LVOT Vmax:0.72 m/s LVOT VTI: 0.14 m LVOT Diameter: 1.91 cm AoV Area, Vmax: 1.53 cm AoV Area VTI: 1.78 cm AoV Area Vmn:1.49 cm Pulmonic Insufficiency: Final Procedure Note Interface, Radiology Results In - 07/30/2016 1:53 PM CDT Transthoracic Echocardiogram Report [address] [place] [address] Name: PUA WAGNER Sex: M Date: 07/29/2016 Encounter: : 1970 Time: 6:06:03 PM Age: 46 years Height: 72 in Room #: OPTU11 Weight: 200.0 lbs BP: 134/80 mmHg BSA: 2.1 m Ref. Physician: Mickey Schulz MD It Technical Support Specialist: Gaetano Brown Indications: Chest Pain Study Details: Complete Echocardiogram. This was a technically fair study. The patient was awake. Report Creation: 07/29/2016 at 7:38:57 PM Summary: 1. Left ventricular ejection fraction is severely depressed, estimated at 20-25 % with global hypokinesia and moderate LV dilatation. 2. Mild concentric left ventricular hypertrophy. 3. Normal right ventricular size, wall thickness, and global function. Unalbe to comment on LV systolic function. 4. Mild mitral valve regurgitation. 5. No Pericardial effusion. 6. No significnat chnage compared to echo of 05/24/2016 Interpretation: Left Ventricle: The left ventricular chamber size is increased. Left ventricular ejection fraction is 20-25%. Mild concentric left ventricular hypertrophy. LV wall Scoring: There is diffuse hypokinesis. Right Ventricle: Normal right ventricular size, wall thickness, and global function. Left Atrium: The left atrium is normal. Right Atrium: The right atrium is normal. Aortic Valve: The aortic valve is trileaflet and is normal. No evidence of aortic valve stenosis with a valve area of 1.78 cm and a mean gradient of 3.6 mmHg. No significant aortic valve regurgitation. Mitral Valve: The mitral valve appears normal. No evidence of mitral valve stenosis. Mild mitral valve regurgitation. Tricuspid Valve: The tricuspid valve appears normal. No evidence of tricuspid valve stenosis. No significant tricuspid valve regurgitation. Pulmonic Valve: No evidence of pulmonary valve stenosis. No significant pulmonary valve regurgitation. Pericardium: No pericardial effusion seen. Aorta: Aortic root is normal. Venous: Pulmonary veins were not recorded in this study. Measurements: Dimensions(2D) In cm Normals Dimensions In cm Normals Aortic Root 2.0-3.7cm Left Atrium(ES) 2.93 cm 1.9-4.0cm Left Ventricle LA Volume End Diastole 6.3 cm 3.7-5.6cm RV Diastole 0-7-2.3 cm End Systole 5.6 cm 1.8-4.2cm IVS(D) 0.90 cm 0.6-1.1cm LVPW(D) 1.3 cm 0.6-1.1cm LV %FS 11.0 % LVEF(2-D) 30 % >50% LV Diastolic Function: MV Peak E: 0.80 m/s Decel Time: 199 msec MV Peak A: 0.65 m/s E/A Ratio: 1.22 Spectral Doppler Analysis (Where Applicable): Mitral Valve: MV Max Edson: 0.91 m/s MV P1/2 Time: 57.70 msec MV Mean Grad: 1.7 mmHg MV Area, PHT: 3.81 cm Mitral Insufficiency by PISA: MR Volume: MR Flow Rate: MR REOA: MR VTI: 1.91 m MR PISA: MR PISA Radius Aortic Valve: AoV Max Edson: 1.33 m/s AoV Peak P.1 mmHg AoV Mean P.6 mmHg LVOT Vmax: 0.72 m/s LVOT VTI: 0.14 m LVOT Diameter: 1.91 cm AoV Area, Vmax: 1.53 cm AoV Area VTI: 1.78 cm AoV Area Vmn: 1.49 cm Pulmonic Insufficiency: Final * Urine drugs of abuse screen (07/29/2016 2:48 PM) Component Value Ref Range Amphetamine screen, urine NEG Barbiturate screen, urine NEG Benzodiazepine screen, NEG urine Cocaine screen, urine NEG Methadone screen, urine NEG Opiates screen, urine POS Phencyclidine screen, NEG urine Cannabinoid screen, urine POS Comment: Drug screen minimum concentration of detectability Amphetamines 1000 ng/mL Methamphetamines 1000 ng/mL Barbiturates 300 ng/mL Benzodiazepines 300 ng/mL Cocaine 300 ng/mL Methadone 3 00 ng/mL Opiates 300 ng/mL Phencyclidine 25 ng/mL Cannabinoids 50 ng/mL Tricyclics 1000 ng/mL Negative test results indicates presumptive evidence of lack of clinically significant drug concentration in this urine specimen. Positive test results are presumptive evidence of clinically significant drug concentration in this urine specimen. Testing performed for medical purposes only. Specimen Performing Laboratory [facility] [address] [place] [address] after 07/08/2016 Insurance Payer Benefit Subscriber ID Type Phone Address Plan / Group [employer] MED[employer] xxxxxxxxx H[place] [employer] [address]
--- OUTSIDE RECORDS SUMMARY | 2017-07-09 23:09 | XMS REPORT ---
[facility] Address Unknown Phone Unavailable Care Team Providers Care Deck Supervisor Name Role Phone UNKNOWN, REFFERING PP Unavailable JEMAL RUIZ Unavailable Unavailable CHIDI, JALIL Unavailable Unavailable YERRAMADHA, MURALIDHAR Unavailable Unavailable WANDA LORA Unavailable Unavailable Problems This patient has no known problems. Allergies, Adverse Reactions, Alerts This patient has no known allergies or adverse reactions. Medications This patient has no known medications. Encounters Start Date/Time End Date/Time Encounter Type Admission Type Attending [facility] Care Department Encounter ID 2016-09-07 06:29:16 Inpatient [facility] [id number] 2016-09-06 06:35:45 Inpatient [facility] [id number] 2017-05-01 20:46:00 2017-05-01 20:46:00 Emergency [facility] [id number] 2017-02-14 00:00:00 2017-02-14 00:00:00 Outpatient [facility] [id number] 2016-12-06 00:00:00 2016-12-06 00:00:00 Outpatient [facility] [id number] 2016-11-03 17:01:06 2016-11-03 17:01:06 Emergency [facility] [id number] 2016-11-03 15:03:46 2016-11-03 15:03:46 Emergency [facility] [id number] 2016-11-03 13:55:41 2016-11-03 13:55:41 Emergency [facility] [id number] 2016-10-05 00:00:00 2016-10-05 00:00:00 Outpatient [facility] [id number] 2016-09-16 06:33:33 2016-09-16 06:33:33 Outpatient [facility] [id number] 2016-09-15 13:53:25 2016-09-15 13:53:25 Outpatient [facility] [id number] 2016-09-15 10:54:41 2016-09-15 10:54:41 Emergency [facility] [id number] 2016-09-04 19:10:13 2016-09-04 19:10:13 Emergency [facility] [id number] 2016-09-04 17:39:00 2016-09-04 17:39:00 Emergency [facility] [id number] 2016-09-04 16:50:36 2016-09-04 16:50:36 Inpatient [facility] [id number] Results Test Description Test Time Test Comments Text Results Atomic Results Result Comments XR CHEST 1 VIEW 2017-05-02 01:21:07 XR CHEST 1 VIEWLocation:[facility] services provided 05/02/2017 1:21 AMIndication:Chest painComparison:None availableFindings:The lungs are equally and symmetrically inflated. The tracheais midline. The cardiac silhouette is normal in size. No acute bonyabnormality. Left-sided dual lead cardiac defibrillator is noted.Impression : No acute cardiopulmonary disease. Comprehensive Metabolic Panel 2017-05-01 23:44:00 Sodium (test code=NA) 140 mmol/L 135-145 Potassium (test code=K) 3.5 mmol/L 3.5-5.1 Chloride (test code=CL) 100 mmol/L 98-105 Carbon Dioxide (test code=CO2) 25 mmol/L 22-29 Glucose (test code=GLU) 89 mg/dL 70-115 Blood Urea Nitrogen (test code=BUN) 11 mg/dL 6-20 Creatinine (test code=CREAT) 0.9 mg/dL 0.7-1.2 Calcium (test code=CA) 10.0 mg/dL 8.3-10.5 Prot Total (test code=TP) 8.0 g/dL 6.4-8.3 Albumin (test code=ALB) 4.6 g/dL 3.5-5.2 A/G Ratio (test code=AGRATIO) 1.4 Ratio Globulin (test code=GLOB) 3.4 2.9-3.1 Bili Total (test code=TBIL) 0.6 mg/dL 0.1-0.9 Alk Phos (test code=APHOS) 81 U/L 40-129 AST (test code=AST) 18 U/L 1-40 ALT (test code=ALT) 18 U/L 1-41 BUN/Creatinine Ratio (test code=BCRATIO) 12.2 Anion Gap (test code=AGAP) 15 mmol/L 7-16 Estimated GFR (test code=GFR) >60 mL/min/1.73m2 eGFR (estimated Glomerular Filtration Rate) is an estimated value,calculated from the patient's serum creatinine using the MDRD equation.It is NOT the patient's actual GFR. The eGFR provides a more clinicallyuseful measure of kidney disease than serum creatinine alone.This calculation takes sex and race into account, if the informationis provided. If the race is not provided, and the patient isAfrican- Hungarian, multiply by 1.212. If sex is not provided, and thepatient is female, multiply by 0.742. Results for patients <18 years ofage have not been validated by the MDRD study and should be interpretedwith caution.eGFR Result Interpretation:eGFR > or=60 is in the Normal RangeeGFR < 60 may mean kidney diseaseeGFR < 15 may mean kidney failureRanges recommended by the National Kidney Foundation,http://nkdep.nih.gov Bbo-Cnd3789-09-22 23:44:00* Test Item Value Reference Range Comments NT ProBnp (test code=PBNP) 291 pg/mL 0-124 [id number] 23:44:00* Test Item Value Reference Range Comments Lipase (test code=LIP) 65 U/L 13-60 CK [id number] 23:44:00* Test Item Value Reference Range Comments CK (test code=CK) 83 U/L 39-308 CKMB (test code=CKMB) 1.9 ng/mL 0.0-4.9 CKMB% (test code=CKMBP) 2.3 % 0.0-3.4 Troponin [id number] 23:44:00* Test Item Value Reference Range Comments Troponin T (test code=AKUA) <0.010 ng/mL 0.000-0.090 CK [id number] 23:44:00* Test Item Value Reference Range Comments CK (test code=CK) 83 U/L 39-308 Prothrombin [id number] 23:25:00* Test Item Value Reference Range Comments PT (test code=PT) 10.50 seconds 9.78-13.35 INR (test code=INR) 0.93 Ratio 0.6-1.2 Partial Thromboplastin [id number] 23:24:00* Test Item Value Reference Range Comments aPTT (test code=PTT) 30.80 seconds 24.39-37.25 CBC with [id number] 23:16:00* Test Item Value Reference Range Comments WBC (test code=WBC) 7.6 K/cumm 4.4-10.5 RBC (test code=RBC) 5.33 M/cumm 4.10-5.70 Hemoglobin (test code=HGB) 16.6 gm/dL 13.4-17.4 Hematocrit (test code=HCT) 50.3 % 38.7-52.0 MCV (test code=MCV) 94.5 fL 80-100 MCH (test code=MCH) 31.1 pg 27.0-32.5 MCHC (test code=MCHC) 32.9 g/dL 32.0-37.5 RDW (test code=RDW) 13.9 % 11.5-14.5 Platelet Count (test code=PLTCT) 178 K/cumm 140-440 MPV (test code=MPV) 8.4 fL Diff Method (test code=DIFFM) Auto Neutrophil (test code=NEUT) 58.4 % 36-70 Lymphocyte (test code=LYMPH) 30.6 % 12-44 Monocyte (test code=MONO) 7.0 % 0-11 Eosinophil (test code=EOS) 3.4 % 0-7 Basophil (test code=BASO) 0.5 % 0-2 Neutro Abs (test code=ANEUT) 4.4 K/cumm 1.6-7.4 Lymph Abs (test code=ALYMPH) 2.3 K/cumm 0.5-4.6 Chambers Abs (test code=AMONO) 0.5 K/cumm 0.0-1.2 Eos Abs (test code=AEOS) 0.26 K/cumm 0.00-0.74 Baso Abs (test code=ABASO) 0.0 K/cumm 0.00-0.21 CT CHEST W [place] [address] Patient Name: JOSE DE JESUSPAU CHUNG MR #: [id number] : 1970 Age/Sex: 46/M Req #: [id number] Adm Physician: JALIL MURILLO MD Ordered by: JALIL MURILLO MD Report #: [id number] Location: MED/SURG Room/Bed: [facility] _ Procedure: [id number] CT/CT CHEST W Exam Date: 03/09/17 Exam Time: 1315 REPORT STATUS: Signed PROCEDURE: CT scan of the chest WITH intravenous contrast, using PE protocol. TECHNIQUE: The chest was scanned utilizing a multidetector helical scanner from the lung apex through the level of the adrenal glands after the IV administration of 100 cc of Isovue 370, with special concentration of the pulmonary arteries. Coronal and sagittal multiplanar reformations were obtained. COMPARISON : [facility], CT, CT CHEST W, 01/16/2017, 14:37. INDICATIONS : CHEST PAIN FINDINGS: Lines/tubes: Stable dual-lead left upper chest cardiac device. Lungs and Airways: No filling defects in the main, right or left pulmonary arteries to their segmental level to suggest pulmonary embolism. No consolidation, masses, or pulmonary nodules. Minimal right lower lobe dependent atelectasis. Airways are clear, without endobronchial lesions. Pleura: No effusion, or pneumothorax. Heart and mediastinum: Thyroid is unremarkable. Heart size is normal. No pericardial effusion. Aorta is non-aneurysmal. Pulmonary artery is normal in caliber. Lymph nodes: No mediastinal, hilar, or axillary adenopathy. Abdomen: Limited contrast-enhanced views of the upper abdomen show no abnormality within the visualized liver, spleen, pancreas, or kidneys. The adrenal glands are normal. Bones: No acute bony abnormalities. No lytic or blastic lesions. Soft tissues are grossly unremarkable. IMPRESSION: 1. no CT evidence of pulmonary embolism. 2. Lungs are grossly clear. No consolidation, masses, nodules, or effusion. Tim Mukherjee M.D. Dictated by: Tim Mukherjee M.D. on 03/09/2017 at 14:17 Electronically approved by: Tim Mukherjee M.D. on 03/09/2017 at 14:17 Dictated By: TIM MUKHERJEE MD 16 Transcribed By: KIMBERLY on 03/09/171416 COPY TO: JALIL MURILLO MD CHEST SINGLE (PORTABLE) [place] [address] Patient Name: PAU DELA CRUZ MR #: [id number] : [birth year] Age/Sex: 46/M Req #: [id number] Adm Physician: Ordered by: SHARI WEBB MD Report #: [id number] Location: ER Room/Bed: Procedure: [id number] DX/CHEST SINGLE (PORTABLE) Exam Date: 03/08/17 Exam Time: 1600 REPORT STATUS: Signed PROCEDURE: A single AP view of the chest. COMPARISON: [facility], DX, CHEST SINGLE (PORTABLE), 01/16/2017, 10:23. INDICATIONS: CHEST PAIN FINDINGS: Lines/tubes: None. A dual- lead left-sided cardiac pacemaker is unchanged in position. Lungs: The lungs are well inflated and clear. There is no evidence of pneumonia or pulmonary edema. Pleura: There is no pleural effusion or pneumothorax. Heart and mediastinum: The heart and the mediastinum are unremarkable. Bones: No acute bony abnormality. IMPRESSION: 1. No acute cardiopulmonary disease. Gail Hernandez M.D. Dictated by: Gail Hernandez M.D. on 03/08/2017 at 16:38 Electronically approved by: Gail Hernandez M.D. on 03/08/2017 at 16:38 Dictated By: CHRISTINE HERNANDEZ MD, MD 37 Transcribed By: KIMBERLY on 03/08/17 1638 COPY TO: SHARI WEBB MD CT CHEST W [place] [address] Patient Name: PAU DELA CRUZ MR #: [id number] : 1970 Age/Sex: 46/M Req #: [id number] [facility] Physician: TONG LARRY MD Ordered by: CARSON KANG MD Report #: [id number] Location: [facility] Room/ Bed: [facility] Procedure: [id number] CT/CT CHEST W Exam Date: 01/16/17 Exam Time: 1453 REPORT STATUS: Signed PROCEDURE: CT scan of the chest WITH intravenous contrast, using PE protocol. TECHNIQUE: The chest was scanned utilizing a multidetector helical scanner from the lung apex through the level of the adrenal glands after the IV administration of 86 cc of Isovue 370. Coronal and sagittal multiplanar reformations were obtained. DLP: 559.39 mGy-cm COMPARISON: None. INDICATIONS: CHEST PAIN FINDINGS: Lines/ tubes: Dual-lead left chest wall cardiac device. Lungs and Airways: The lungs and airways are normal with no focal abnormality demonstrated. No pulmonary emboli. Bibasilar opacities compatible with atelectasis and/or scarring. Pleura: The pleural spaces are clear. Heart and mediastinum: The thyroid gland is normal. No significant hilar or axillary lymphadenopathy is seen. Prominent prevascular node measures 6.5 mm is not considered pathologic. The heart and pericardium are within normal limits. Soft tissues: Normal. Abdomen: Limited contrast-enhanced views of the upper abdomen show no abnormality within the visualized liver, spleen, pancreas, or kidneys. Small high density foci in near the neck of the gallbladder may represent a small stone. The adrenal glands are normal. Bones: The visualized bony thorax is within normal limits. IMPRESSION: No acute abnormality within the chest. Sean Estrada D.O. Dictated by: Sean Estrada D.O. on 01/16/2017 at 17:08 Electronically approved by: Sean Estrada D.O. on 01/16/2017 at 17:08 Dictated By: SEAN ESTRADA DO 07 Transcribed By: KIMBERLY on 01/16/171707 COPY TO: CARSON KAGN MD CHEST SINGLE (PORTABLE) [place] [address] Patient Name: PAU DELA CRUZ MR #: [id number] : 1970 Age/ Sex: 46/M Req #: [id number] Adm Physician: Ordered by : NATHANAEL HENDRICKS MD Report #: [id number] Location: ER Room/Bed: Procedure: [id number] DX/CHEST SINGLE (PORTABLE) Exam Date: Exam Time: 1025 REPORT STATUS: Signed PROCEDURE: CHEST SINGLE (PORTABLE) COMPARISON: 12/29/2016. INDICATIONS: CHEST PAIN FINDINGS: Unchanged position of left subclavian approach implantable cardiac device body and leads. Lungs remain clear. Stable cardiomediastinal contour. No acute osseous abnormality. CONCLUSION: No acute cardiopulmonary abnormality. Dictated by: Sarah Rosenbaum M.D. on 01/16/2017 at 10:56 Electronically approved by: Sarah Rosenbaum M.D. on 01/16/2017 at 10:56 Dictated By: SARAH ROSENBAUM MD 1056 Transcribed By: KIMBERLY on 01/16/17 1056 COPY TO: NATHANAEL HENDRICKS MD CHEST SINGLE (PORTABLE) [place] [address] Patient Name: PAU DELA CRUZ MR #: [id number] : 1970 Age/Sex: 46/M Req #: [id number] Adm Physician: Ordered by: WANDA LORA MD Report #: [id number] Location: ER Room/Bed: Procedure: [id number] DX/CHEST SINGLE (PORTABLE) Exam Date: 12/29/16 Exam Time: 1420 REPORT STATUS: Signed PROCEDURE: A single AP view of the chest. COMPARISON: None. INDICATIONS: CHEST PAIN FINDINGS: Lines/tubes: Left upper chest dual-lead cardiac device, with the distal tips projecting in the right atrium and right ventricle. Lungs: The lungs are well inflated and clear. There is no evidence of pneumonia or pulmonary edema. Pleura: There is no pleural effusion or pneumothorax. Heart and mediastinum: Cardiac silhouette is unremarkable. Pulmonary vasculature is normal. Bones: No acute bony abnormality. IMPRESSION: 1. No acute cardiopulmonary abnormalities. Tim Mukherjee M.D. Dictated by: Tim Mukherjee M.D. on 12/29/2016 at 14:52 Electronically approved by: Tim Mukherjee M.D. on 12/29/2016 at 14:52 Dictated By: TIM MUKHERJEE MD 51 Transcribed By: KIMBERLY on 12/29/161451 COPY TO: WANDA LORA MD
[2017-07-09] MEDS ORDERED: ONDANSETRON HCL INJ 2 MG/ML VIAL IV STA (23:29)
[2017-07-09] MEDS ORDERED: MORPHINE SULFATE 2 MG/ML SYR IV STA (23:29)
[2017-07-09] MEDS ORDERED: PANTOPRAZOLE 40 MG 10ML VIAL IV STA (23:29)
[2017-07-09 23:43] LABS: BASOPHILS # (AUTO) 0.1 (0.0-0.1); BASOPHILS % 0.6 % (0.0-1.0); EOSINOPHILS # (AUTO) 0.1 (0.0-0.4); EOSINOPHILS % 1.2 % (0.0-6.0); HEMATOCRIT 43.5 % (38.2-49.6); HEMOGLOBIN 15.3 g/dL (14.0-18.0); LYMPHOCYTES # (AUTO) 2.8 (1.0-3.2); LYMPHOCYTES % 34.7 % (18.0-39.1); MEAN CORPUSCULAR HEMOGLOBIN 32.1 pg (28-32); MEAN CORPUSCULAR HGB CONC 35.2 g/dL (31-35); MEAN CORPUSCULAR VOLUME 91.4 fL (81-99); MONOCYTES # (AUTO) 0.7 (0.2-0.8); NEUTROPHILS # (AUTO) 4.5 (2.1-6.9); NEUTROPHILS % 55.3 % (38.7-80.0); PLATELET COUNT 184 x10e3/uL (140-360); RED BLOOD COUNT 4.76 x10e6/uL (4.3-5.7)
[2017-07-09 23:46] LABS: CLARITY,URINE CLEAR (CLEAR); COLOR,URINE YELLOW (YELLOW); LEUKOCYTE ESTERASE ,URINE NEGATIVE (NEGATIVE); NITRITE,URINE NEGATIVE (NEGATIVE)
[2017-07-09 23:47] LABS: AMPHETAMINES SCREEN,URINE NEGATIVE (NEGATIVE); BENZODIAZEPINES SCREEN,URINE NEGATIVE (NEGATIVE); BILIRUBIN,URINE NEGATIVE (NEGATIVE); KETONES,URINE NEGATIVE (NEGATIVE); PHENCYCLIDINE SCREEN,URINE NEGATIVE (NEGATIVE); PROTEIN,URINE DIPSTICK NEGATIVE (NEGATIVE); URINE UROBILINOGEN 0.2 mg/dL (0.2 - 1)
[2017-07-09 23:48] LABS: INR 1.14; PROTHROMBIN TIME 13.7 seconds (11.9-14.5)
[2017-07-09 23:55] LABS: RBC,URINE 0-5 /HPF (0-5); WBC,URINE (MAN) 0-5 /HPF (0-5)
[2017-07-09 23:57] LABS: ALANINE AMINOTRANSFERASE 58 IU/L (0-55); ALBUMIN 3.8 g/dL (3.5-5.0); ALKALINE PHOSPHATASE 69 IU/L (40-150); AMYLASE 85 U/L (25-125); ANION GAP 16.4 mmol/L (8-16); BLOOD UREA NITROGEN 9 mg/dL (7-26); BUN/CREATININE RATIO 9 (6-25); CALCIUM 8.9 mg/dL (8.4-10.2); CARBON DIOXIDE 22 mmol/L (22-29); CHLORIDE 99 mmol/L (98-107); CREATINE KINASE 129 IU/L (30-200); CREATININE, SERUM 1.05 mg/dL (0.72-1.25); EST GLOMERULAR FILTRATION RATE > 60 ML/MIN (60-); GLUCOSE 198 mg/dL (74-118); LIPASE 58 U/L (8-78); MAGNESIUM 1.8 MG/DL (1.3-2.1); POTASSIUM 3.4 mmol/L (3.5-5.1); SODIUM 134 mmol/L (136-145)
[2017-07-10 00:16] LABS: THYROID STIMULATING HORMONE 3.321 uIU/mL (0.350-4.940)
--- NOTE | 2017-07-10 00:17 | Diagnostic Imaging Report ---
CHEST SINGLE (PORTABLE), 07/09/2017 11:29 PM Technique: CHEST SINGLE (PORTABLE) Comparison: 03/08/2017 Clinical history: \S\AICD FIRED, CP W/ SOB, H/O CHF EF 15% \S\[id number] \S\0880 Findings: Motion artifact. Stable appearance of the heart, mediastinum, lungs and pleural spaces. No consolidation or edema. Impression: 1. Lines/Tubes: Stable left chest wall dual-lead ICD. 2. No acute abnormality. Signed by: Dr Lori Nance MD on 07/10/2017 12:13 AM
[2017-07-10] MEDS ORDERED: SODIUM CHLORIDE 0.9% 500ML 500 ML IV ONE (01:00)
--- NOTE | 2017-07-10 01:58 | Diagnostic Imaging Report ---
EXAM: CT CHEST W DATE: 07/10/2017 12:47 AM INDICATION: Chest pain, shortness of breath COMPARISON: 03/09/2017 TECHNIQUE: Multidetector CT scanning of the chest was performed. Coronal and sagittal multiplanar reformations were obtained. IV Contrast: 100 ml Isovue 370/300 FINDINGS: Left chest wall dual-lead pacer with right atrial and ventricular leads. LUNGS AND PLEURA: No consolidations or edema. No effusions or pneumothorax. HEART, MEDIASTINUM, VESSELS: Mild cardiomegaly without pericardial effusion. Suboptimal contrast attenuation within the pulmonary arterial system. Motion artifact precludes evaluation beyond the lobar level in the left lower lobe. Otherwise, no evidence of acute pulmonary artery embolism. Main pulmonary artery is borderline enlarged, 3 cm. UPPER ABDOMEN: Hepatic steatosis. Otherwise unremarkable.. MUSCULOSKELETAL: No acute findings. IMPRESSION: 1. Somewhat degraded by suboptimal contrast bolus and motion artifact in the left lower lobe. Otherwise no evidence of acute pulmonary embolism, as above. 2. No other acute abnormality. Signed by: Dr Lori Nance MD on 07/10/2017 1:55 AM
[2017-07-10] MEDS: MORPHINE SULFATE 2 MG/ML SYR IV PRN ×5 (03:13→20:53)
--- OUTSIDE RECORDS SUMMARY | 2017-07-10 03:25 | XMS REPORT | Clinical Summary ---
Author Author [facility] Address Unknown Phone Unavailable Care Team Providers Care Vmware Systems Administrator Name Role Phone Celia Kessler MD PCP [...] Semaj Rowe MD infarction (Primary Dx) 01/05/2017 [facility] Dewey Astorga MD [...] General Internal Medicine Amee Camargo MD 08/13/2016 [facility] Physician, Emergency, MD - Encounter Nathaniel Mclain DO 08/14/2016 Amee Camargo MD 08/13/2016 Orders Only Emergency Medicine Devonte Miller MD 07/29/2016 [facility] Physician, Emergency, MD - Encounter Lorri Nance, 07/30/2016 Amee Hoskins MD 07/29/2016 Conversion Amee Camargo MD Encounter 07/29/2016 Orders Only Amee Camargo MD 07/29/2016 Orders Only Amee Camargo MD 07/29/2016 Orders Only Emergency Medicine Anton Noonan, DO after 07/09/2016 Family History Medical History Relation Name Comments [...] Taken Blood Pressure 129/83 06/13/2017 10:50 AM NET DEVELOPER WITH WCF Pulse 66 06/13/2017 10:50 AM NET DEVELOPER WITH [employer] Temperature 36.4 C (97.5 F) 06/13/2017 10:50 AM NET DEVELOPER WITH [employer] Respiratory Rate 17 06/13/2017 10:50 AM NET DEVELOPER WITH [employer]CF Oxygen Saturation 98% 06/13/2017 10:50 AM NET DEVELOPER WITH [employer]CF Inhaled Oxygen - - Concentration Weight 87.6 kg (193 lb 1.6 oz) 06/13/2017 6:00 AM NET DEVELOPER WITH [employer] Height 182.9 cm (6') 06/12/2017 10:33 PM NET DEVELOPER [employer] Body Mass Index 26.19 06/13/2017 6:00 AM NET DEVELOPER WITH [employer] Plan of Treatment Health Maintenance Due Date Last Done Comments INFLUENZA VACCINE 11/08/2016 Implants Implanted Type Area Decorator Hand Device Expiration Model / Identifier Date Serial / Lot Pacemaker-11/22/2016 Pacemaker Implanted: 11/22/2016 by Franky Stack MD (Quantity not on file) Procedures Procedure Name Priority Date/Time Associated Diagnosis Comments ECHOCARDIOGRAM 2D Routine 06/13/2017 Results for this COMPLETE W MMODE SPECTRAL 8:33 AM NET DEVELOPER WITH [employer]CF procedure are in the COLOR DOPPLER (18955) results section. CV STRESS TEST NUCLEAR Routine 02/15/2017 Results for this CARDIO 11:30 AM NET DEVELOPER [employer] procedure are in the results section. ECHOCARDIOGRAM 2D Routine 02/14/2017 Results for this COMPLETE W MMODE SPECTRAL 4:10 PM NET DEVELOPER [employer] procedure are in the COLOR DOPPLER (95195) results section. ECHOCARDIOGRAM 2D 08/14/2016 Results for this COMPLETE W MMODE SPECTRAL 3:32 PM CDT procedure are in the COLOR DOPPLER (83879) results section. CV STRESS TEST Routine 08/14/2016 Results for this 2:27 PM CDT procedure are in the results section. ECHOCARDIOGRAM 2D 07/29/2016 Results for this COMPLETE W MMODE SPECTRAL 6:06 PM CDT procedure are in the COLOR DOPPLER (51050) results section. after 07/09/2016 Results * Echocardiogram complete w contrast and 3D if needed (06/13/2017 8:33 AM) Specimen Performing Laboratory [facility] [address] [place] [address] Narrative The left ventricle chamber size is [...] (>=200 mg/dL) Specimen Performing Laboratory Plasma specimen [facility] DEPARTMENT OF PATHOLOGY AND GENOMIC MEDICINE [address] [place] [id number] * Troponin (06/12/2017 11:14 PM) Only the [...] myocardial injury. Specimen Performing Laboratory Plasma specimen [facility] DEPARTMENT OF PATHOLOGY AND GENOMIC MEDICINE [address] [place] [address] * Magnesium level (06/12/2017 11:14 PM) Only the most recent of 2 results within the time period is included. Component Value Ref Range Magnesium 1.80 1.60 - 2.40 mg/dL Specimen Performing Laboratory Plasma specimen [facility] DEPARTMENT OF PATHOLOGY AND GENOMIC MEDICINE [address] [place] [address] * ECG 12 lead (06/12/2017 7:31 PM) Only the most recent of 20 results within the time period is included. Component Value Ref Range Ventricular rate 82 Atrial rate 82 WA interval 122 QRSD interval 96 QT interval 398 QTC interval 464 P axis 1 55 QRS axis 1 48 T wave axis 82 EKG impression Normal sinus rhythm-Cannot rule out Anterior infarct , age undetermined-Abnormal ECG-- Specimen Performing Laboratory [facility] [address] [place] [address] * ECG ED Preliminary Interpretation - NOT AN ORDER (06/12/2017 7:23 PM) Only the most recent of 8 results within the time period is included. Juli Nguyen Jr., MD 06/13/20171:37 PM ECG ED Preliminary Interpretation - Not an Order Performed by: VÍCTOR NGUYEN JR. Authorized by: VÍCTOR NGUYENKA JR. ECG reviewed by ED Physician in the absence of a vp cardiovascular service line: yes Interpretation: Interpretation: normal Rate: ECG rate:92 [...] is included. Specimen Performing Laboratory [facility] [address] [place] [address] Narrative EXAMINATION: XR CHEST 2 VW CLINICAL HISTORY: Chest Pain COMPARISON:05/02/2017. IMPRESSION: Left AICD with stable leads. The lungs are clear. No pleural effusion or pneumothorax. The cardiomediastinal silhouette is normal. No acute osseous abnormalities. [facility]-[id number] Procedure Note Interface, Radiology Results Incoming - 06/12/2017 7:13 PM NET DEVELOPER WITH WCF EXAMINATION: XR CHEST 2 VW CLINICAL HISTORY: Chest Pain COMPARISON: 05/02/2017. IMPRESSION: Left AICD with stable leads. The lungs are clear. No pleural effusion or pneumothorax. The cardiomediastinal silhouette is normal. No acute osseous abnormalities. [facility]-[id number] * Estimated GFR (06/12/2017 5:51 PM) Only [...] and Americans. Specimen Performing Laboratory Plasma specimen [facility] DEPARTMENT OF PATHOLOGY AND GENOMIC MEDICINE [address] [place] [address] * CBC with platelet and differential (06/12/2017 [...] - 1.0 % Specimen Performing Laboratory Blood [facility] DEPARTMENT OF PATHOLOGY AND GENOMIC MEDICINE [address] [place] [address] * B natriuretic peptide (06/12/2017 5:51 PM) Only the most recent of 12 results within the time period is included. Component Value Ref Range BNP 29 0 - 100 pg/mL Specimen Performing Laboratory Blood [facility] DEPARTMENT OF PATHOLOGY AND GENOMIC MEDICINE [address] [place] [address] * Comprehensive metabolic panel (06/12/2017 5:51 PM) [...] 1.2 mg/dL Specimen Performing Laboratory Plasma specimen [facility] DEPARTMENT OF PATHOLOGY AND GENOMIC MEDICINE [address] [place] [address] * Thyroid stimulating hormone (03/15/2017 8:04 AM) Only the most recent of 4 results within the time period is included. Component Value Ref Range TSH 5.10 (H) 0.38 - 4.82 uIU/mL Specimen Performing Laboratory Plasma specimen [facility] OF PATHOLOGY AND [facility] MEDICINE [address] [place], [place] [id number] * T4, free (03/15/2017 8:04 AM) Only the most recent of 2 results within the time period is included. Component Value Ref Range T4, free 0.95 0.70 - 1.61 ng/dL Specimen Performing Laboratory Plasma specimen [facility] OF PATHOLOGY AND [facility] MEDICINE [address] [place] [address] * Hemoglobin A1c (03/15/2017 4:45 AM) Component [...] indicated. (A DA94) Specimen Performing Laboratory Blood [facility] PATHOLOGY AND [facility] MEDICINE [address] [place] [address] * Prothrombin time with INR (03/14/2017 3:52 [...] values over 4.0. Specimen Performing Laboratory Blood [facility] DEPARTMENT OF PATHOLOGY AND GENOMIC MEDICINE [address] [place] [address] * Creatine kinase, total (CPK) (03/14/2017 3:52 PM) Only the most recent of 14 results within the time period is included. Component Value Ref Range Creatine kinase 49 (L) 61 - 224 U/L Specimen Performing Laboratory Plasma specimen [facility] DEPARTMENT OF PATHOLOGY AND GENOMIC MEDICINE [address] [facility] [address] * Cv stress procedure (02/15/2017 11:30 AM) [...] provided as part of this Stress ECG report.- -Also Target HR 149.60 bpm Specimen Performing Laboratory [facility] [address] [place] [address] * Myocardial perfusion (02/15/2017 11:30 AM) Component Value Ref Range Target HR 149.60 bpm Resting HR 61 BPM Resting BP 110/72 mmHg [facility] [address] [place] [address] Narrative There are no perfusion defects. Study [...] 10.2 mg/dL Specimen Performing Laboratory Plasma specimen [facility] DEPARTMENT OF PATHOLOGY AND GENOMIC MEDICINE [address] [place] [address] * Echocardiogram complete w contrast and 3D [...] slope 4.50 Specimen Performing Laboratory [facility] [address] [place] [address] Narrative The left ventricle chamber size is moderately enlarged. Left ventricular systolic function severely impaired . Left Ventricular ejection fraction is 20 - 25%. Right ventricular size is normal. No pericardial effusion * Pv duplex venous upper extremity (02/14/2017 1:40 PM) Only the most recent of 2 results within the time period is included. Specimen Performing Laboratory [facility] [address] [place] [address] Narrative There is evidence of DVT in the left upper extremity involving the subclavian vein. Additionally, there is thrombosis of the Cephalic vein distally. * CT Angiogram Chest W Contrast Abdomen W Contrast Pelvis W Contrast (2016 11:52 PM) Specimen Performing Laboratory [facility] [address] [place] [address] Narrative Examination:CT ANGIOGRAM CHEST ABDOMEN PELVIS W [...] abnormality identified in the abdomen or pelvis. [facility]-[id number] Procedure Note Hm Interface, Radiology Results Incoming - 02/14/2017 12:17 AM NET DEVELOPER WITH WCF Examination: CT ANGIOGRAM CHEST ABDOMEN PELVIS W [...] abnormality identified in the abdomen or pelvis. [facility]-[id number] * Partial thromboplastin time, activated (02/13/2017 9:00 PM) Only the most recent of 6 results within the time period is included. Component Value Ref Range PTT 29.7 23.0 - 36.0 sec Comment: PTT therapeutic range for unfractionated heparin is 61.0-112.0 seconds which corresponds to Anti-Xa 0.3-0.7 U/ml. Specimen Performing Laboratory Blood [facility] DEPARTMENT PATHOLOGY AND [facility] [address] [place] [address] * Hepatic function panel (02/13/2017 9:00 PM) [...] 50 U/L Specimen Performing Laboratory Plasma specimen [facility] PATHOLOGY AND [facility] [address] [place] [address] * Anti Xa, unfractionated (01/08/2017 9:36 AM) Only the most recent of 10 results within the time period is included. Component Value Ref Range Anti Xa, unfractionated 0.79 (H)Comment: Therapeutic Range: 0.30 - 0.70 0.30 - 0.70 U/mL U/mL Specimen Performing Laboratory Blood [facility] DEPARTMENT OF PATHOLOGY AND GENOMIC MEDICINE [address] [place] [address] * Manual differential (01/07/2017 5:30 AM) Component [...] slide review Marcella adequate Specimen Performing Laboratory [facility] DEPARTMENT OF PATHOLOGY AND GENOMIC MEDICINE [address] [place] [address] * Uric acid level (01/05/2017 8:27 PM) Component Value Ref Range Uric acid 5.1 3.9 - 7.8 mg/dL Specimen Performing Laboratory Plasma specimen [facility] DEPARTMENT OF PATHOLOGY AND GENOMIC MEDICINE [address] [place] [address] * XR Chest 1 Vw Portable (11/11/2016 1:45 PM) Specimen Performing Laboratory [facility] [address] [place] [address] Narrative EXAMINATION:XR CHEST 1 VW PORTABLE CLINICAL HISTORY:Chest Pain COMPARISON:October 03, 2016 FINDINGS: Heart size is within normal limits. The mediastinum is unremarkable. The lungs are clear. IMPRESSION: No acute finding is visualized [id number] Procedure Note Interface, Radiology Results Incoming - 11/11/2016 2:21 PM CDT EXAMINATION: XR CHEST 1 VW PORTABLE CLINICAL HISTORY: Chest Pain COMPARISON: October 03, 2016 FINDINGS: Heart size is within normal limits. The mediastinum is unremarkable. The lungs are clear. IMPRESSION: No acute finding is visualized [id number] * CK-MB (09/03/2016 10:28 PM) Only the most recent of 8 results within the time period is included. Component Value Ref Range CK-MB 1.4 0.5 - 3.2 ng/mL Specimen Performing Laboratory Plasma specimen [facility] DEPARTMENT OF PATHOLOGY AND GENOMIC MEDICINE [address] [place] [address] * Echocardiogram complete w contrast and 3D if needed (08/14/2016 3:32 PM) Specimen Performing Laboratory [facility] [address] [place] [address] Narrative Transthoracic Echocardiogram Report [address] [place] [address] Name:PAU WAGNER Sex: M Date: 2016 Encounter:: 1970 Time: 3:32:06 PM 46 yearsHeight: 72 in Room #:244A Weight: 198.0 lbs BP:134/70 mmHg BSA: 2.1 m Ref. Physician:Amee Camargo Poultry Farm Laborer: Ty Mccollum Indications: Chest pain Study Details: [...] CDT Transthoracic Echocardiogram Report [address] [place] [address] Name: PAU WAGNER Sex: M Date: 08/14/2016 Encounter: : 1970 Time: 3:32:06 PM Age: 46 years Height: 72 in Room #: 244A Weight: 198.0 lbs BP: 134/70 mmHg BSA: 2.1 m Ref. Physician: Amee Camargo Poultry Farm Laborer: Ty Mccollum Indications: Chest pain Study Details: [...] -Nuclear report pending - Specimen Performing Laboratory [facility] [address] [place] [address] * CT Angiogram Pe Chest (08/13/2016 11:24 PM) Only the most recent of 2 results within the time period is included. Specimen Performing Laboratory [facility] [address] [place] [address] Narrative CTA PE CHEST INDICATION:Chest pain TECHNIQUE: [...] No pulmonary embolism or acute pulmonary infiltrate. [id number] Procedure Note Interface, Radiology Conversion - 08/13/2016 [...] No pulmonary embolism or acute pulmonary infiltrate. [facility]-[id number] * XR Chest 1 Vw (08/13/2016 8:03 PM) Specimen Performing Laboratory [facility] [address] [place] [address] Narrative EXAMINATION:CHEST 1 VIEW PA AP CLINICAL [...] 6:06 PM) Specimen Performing Laboratory [facility] [address] [place] [address] Narrative Transthoracic Echocardiogram Report [address] [place] [address] Name:PAU WAGNER Sex: M Date: 2016 Encounter:: 1970 Time: 6:06:03 PM 46 yearsHeight: 72 in Room #:OPTU11 Weight: 200.0 lbs BP:134/80 mmHg BSA: 2.1 m Ref. Physician:Mickey Schulz MD Poultry Farm Laborer: Gaetano Brown Indications: Chest Pain Study Details: [...] CDT Transthoracic Echocardiogram Report [address] [place] [address] Name: PAU WAGNER Sex: M Date: 07/29/2016 Encounter: : 1970 Time: 6:06:03 PM Age: 46 years Height: 72 in Room #: OPTU11 Weight: 200.0 lbs BP: 134/80 mmHg BSA: 2.1 m Ref. Physician: Mickey Schulz MD Poultry Farm Laborer: Gaetano Brown Indications: Chest Pain Study Details: [...] for medical purposes only. Specimen Performing Laboratory [facility] DEPARTMENT OF PATHOLOGY AND GENOMIC MEDICINE [address] [place] [address] after 07/09/2016 Insurance Payer Benefit Subscriber ID Type Phone Address Plan / Group [employer] MEDICAID [employer] xxxxxxxxx HMO [employer]+ [place] [address]
[2017-07-10] MEDS ORDERED: IOPAMIDOL 370 MG/ML 200 ML INFUS..BTL INJ ONE (03:36)
[2017-07-10] MEDS ORDERED: SODIUM CHLORIDE 0.9% 50ML 50 ML ONE (03:36)
[2017-07-10] MEDS ORDERED: METOPROLOL TARTRATE 25 MG TAB PO ONE (07:00)
[2017-07-10] MEDS: ONDANSETRON HCL INJ 2 MG/ML VIAL IV PRN ×3 (08:04→22:00)
[2017-07-10] MEDS: FAMOTIDINE 20 MG/2 ML VIAL IV SCH ×2 (08:04→21:00)
[2017-07-10] MEDS ORDERED: ASPIRIN 325 MG TAB EC PO SCH (09:00)
[2017-07-10 09:01] LABS: CREATINE KINASE MB 1.4 ng/mL (0-5.0)
[2017-07-10] MEDS ORDERED: POTASSIUM CHLORIDE 20 MEQ TAB CR PO STA (10:37)
[2017-07-10] MEDS ORDERED: POTASSIUM CHLORIDE 20 MEQ TAB CR PO SCH (10:45)
[2017-07-10 12:46] VITALS: BP 155/76
--- NOTE | 2017-07-10 13:53 | Consultation ---
DATE OF CONSULTATION: July 10, 2017 REASON FOR CONSULTATION: AICD firing. CONSULTING PHYSICIAN: Dr. Levine. HPI: This is a pleasant 47-year-old male that presented with chest pain. According to him, he was out mowing his lawn and he felt a sudden shock to his chest and he passed out. He said that his family told him he was down for few minutes before he was able to regain consciousness. He is a patient of Dr. Stack at our [place] office and he is the one that implanted his ICD last year at [facility]. He also complained of chest pain that was going on throughout the whole day on a scale of 8/10 that radiated to his left arm, forearm, and hand that he drove himself to the hospital. He has an extensive history of polysubstance abuse. He was found with positive alcohol level, marijuana, and TSH from his blood. He also has a history of nonischemic cardiomyopathy and recent ICD placement and he also developed a left upper extremity DVT and has been on Xarelto. He denies any palpitation, any dizziness, any diaphoresis, or any headache. Troponin x2 negative. EKG with no ST abnormalities. PAST MEDICAL HISTORY: DVT, hypertension, hypothyroidism, gout, CHF systolic and nonischemic cardiomyopathy. PAST SURGICAL HISTORY: ICD placement. FAMILY HISTORY: Noncontributory. SOCIAL HISTORY: He smokes, he drinks, and he uses drugs. MEDICATIONS: See med list. ALLERGIES: He is not allergic to any medication. Review OF SYSTEMS: Negative except those mentioned above. PHYSICAL EXAMINATION: VITAL SIGNS: Temperature 98, heart rate 70, blood pressure 111/73, respirations 18, oxygen saturation 98% on 2 L nasal cannula. GENERAL: He is alert, awake, and oriented x3 and requesting more pain medication. HEENT: Mucous membrane moist. NECK: Supple. LUNGS: Bilateral clear to auscultation. CARDIOVASCULAR: S1, S2 present. ABDOMEN: Soft. NEUROLOGICAL: Intact. EXTREMITIES: With no edema. LABS: Sodium 134, potassium 3.4, chloride 99, CO2 22, BUN 9, creatinine 1.05, glucose 198. White blood cell 8.10, hemoglobin 15.3, hematocrit 43.5, platelet 184. PT 13.7, PTT 34.0, INR 1.14. IMPRESSION 1. Nonischemic cardiomyopathy. 2. Automatic implantable cardioverter-defibrillator. 3. Polysubstance abuse. 4. History of deep venous thrombosis, left upper arm. 5. Hypertension. 6. Hypothyroidism. 7. History of gout. ASSESSMENT AND PLAN: We will get an echo to reassess the LV and the valve function. ICD has been interrogated and he did not receive any therapy, but his heart rate was high in the 170s, nonsustained V-Tach. We will go ahead and check his magnesium. Get serial cardiac enzymes. Replace his potassium. He has been counseled on drug and alcohol cessation. Further cardiac workup pending clinical course. Thank you for this consultation. DICTATED BY: Dax Quevedo NP Job#: [id number] PKU
[2017-07-10 15:42] VITALS: BP 132/66
[2017-07-10 15:51] VITALS: BP 132/66
[2017-07-10 16:43] LABS: CREATINE KINASE MB 1.2 ng/mL (0-5.0)
[2017-07-10 19:25] VITALS: BP 133/68
[2017-07-10] MEDS ORDERED: MAGNESIUM OXIDE 400 MG TAB PO ONE (21:15)
--- NOTE | 2017-07-10 22:35 | History and Physical ---
HOSPITAL PHYSICIAN: Dr. Levine HISTORY: Mr. WAGNER is a pleasant 47-year-old gentleman with reported AICD discharges. Patient came to emergency room late on July 09, 2017. Patient noted pain to the center of his chest. Pain was actually quite severe. He reported being 10/10 intensity. Patient is actually mowing outside his lawn yesterday when he felt a shock as far as he remembers and he passed out for about 30-40 seconds. He went to the emergency room for evaluation. In emergency room, potassium was found to be low at 3.4. Creatinine 1.05. Magnesium was not checked in the emergency room. He was admitted for evaluation and observation. PAST MEDICAL HISTORY: Nonischemic cardiomyopathy with reduced LVEF, hypertension, hypothyroidism, history of DVT in upper extremities, presumed Xarelto. MEDICATIONS: Medication list reviewed per the electronic record includes allopurinol, aspirin, carvedilol, Lasix, Synthroid, lisinopril, metoprolol, nitroglycerin p.r.n., Xarelto, spironolactone. ALLERGIES: NO KNOWN DRUG ALLERGIES. SOCIAL HISTORY: Patient smoked from age [age], one pack per day. Social alcohol only. Rare marijuana, but never did any hard drugs he said. 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 FAMILY HISTORY: Noncontributory. REVIEW OF SYSTEMS GENERAL: No weight changes. OPHTHALMOLOGIC: No double vision. ENT: No nosebleeds. IMMUNOLOGIC: No history of lupus. PULMONARY: No asthma. CARDIAC: No known heart attacks. GI: No constipation. : No blood in urine. DERMATOLOGIC: No rashes. PSYCHIATRIC: No depression. He denies substance abuse. NEUROLOGIC: No seizures. OBJECTIVE VITAL SIGNS: Afebrile, vital signs noted per electronic record. GENERAL: In no acute distress, alert and calm. HEENT: Normocephalic, atraumatic. NECK: Supple. Throat midline. LUNGS: Bilateral air entry, rare rhonchi. CARDIOVASCULAR: S1, S2. Mild murmurs, otherwise unremarkable. ABDOMEN: Soft, nontender. EXTREMITIES: No cyanosis, clubbing, there is no edema. INTEGUMENT: No rash, no purpura. LABS: Reviewed per electronic record. Includes potassium 3.4, creatinine 1.0, BUN 9, bicarbonate 22. White count 8, hematocrit 44. Chest x-ray done shows no acute abnormality and chest CT performed shows no acute pulmonary embolism on CT angiography with other no acute abnormality with 30-mm pulmonary artery. IMPRESSIONS AND PLAN 1. Reported syncope. 2. Reported automatic implantable cardioverter defibrillator discharges. 3. Reported nonsustained ventricular tachycardia on interrogation of device. 4. Nonischemic cardiomyopathy. 5. History of automatic implantable cardioverter defibrillator placement. 6. Possible substance abuse, urine drug screen positive as noted. 7. History of deep venous thrombosis in the left upper arm. 8. Hypertension. 9. Hypothyroidism. 10. Gout. 11. Hypokalemia. Replete potassium. Check magnesium. Follow up with cardiology, who has been consulted. Check echocardiogram. Recommendations per cardiology. Smoking cessation is still recommended to be continued. I would like to thank Dr. Levine and Dr. Gee for allowing me the chance to participate in the care of Mr. Wagner. Do not hesitate to contact me if I can help in any way. Job#: [id number]
[2017-07-11] MEDS: MORPHINE SULFATE 2 MG/ML SYR IV PRN ×4 (00:08→06:16)
[2017-07-11 00:20] VITALS: BP 144/86
[2017-07-11 04:00] VITALS: BP 133/85
[2017-07-11 05:15] VITALS: BP 144/86
[2017-07-11] MEDS ORDERED: LEVOTHYROXINE SODIUM 125 MCG TAB PO SCH (06:30)
[2017-07-11 07:07] LABS: BASOPHILS % 0.5 % (0.0-1.0); EOSINOPHILS # (AUTO) 0.1 (0.0-0.4); EOSINOPHILS % 1.9 % (0.0-6.0); HEMATOCRIT 39.6 % (38.2-49.6); HEMOGLOBIN 13.3 g/dL (14.0-18.0); LYMPHOCYTES # (AUTO) 1.4 (1.0-3.2); LYMPHOCYTES % 32.4 % (18.0-39.1); MEAN CORPUSCULAR HEMOGLOBIN 31.7 pg (28-32); MEAN CORPUSCULAR HGB CONC 33.6 g/dL (31-35); MEAN CORPUSCULAR VOLUME 94.3 fL (81-99); MONOCYTES # (AUTO) 0.5 (0.2-0.8); MONOCYTES % 11.9 % (4.4-11.3); NEUTROPHILS # (AUTO) 2.2 (2.1-6.9); NEUTROPHILS % 53.1 % (38.7-80.0); PLATELET COUNT 125 x10e3/uL (140-360); RED CELL DISTRIBUTION WIDTH 15.9 % (11.7-14.4)
[2017-07-11 07:22] LABS: CREATINE KINASE 51 IU/L (30-200)
[2017-07-11 07:37] LABS: ALANINE AMINOTRANSFERASE 49 IU/L (0-55); ALKALINE PHOSPHATASE 55 IU/L (40-150); ANION GAP 10.9 mmol/L (8-16); BLOOD UREA NITROGEN 7 mg/dL (7-26); BUN/CREATININE RATIO 9 (6-25); CALCIUM 8.6 mg/dL (8.4-10.2); CARBON DIOXIDE 26 mmol/L (22-29); CHLORIDE 105 mmol/L (98-107); CHOL/HDL RATIO 1.6 (3.9-4.7); CHOLESTEROL 147 MD/DL (0-199); CREATININE, SERUM 0.82 mg/dL (0.72-1.25); EST GLOMERULAR FILTRATION RATE > 60 ML/MIN (60-); GLUCOSE 89 mg/dL (74-118); HDL CHOLESTEROL 94 MG/DL (40-60); LDL CHOLESTEROL 39 MG/DL (60-130); POTASSIUM 3.9 mmol/L (3.5-5.1); SODIUM 138 mmol/L (136-145); TRIGLYCERIDES 72 MG/DL (0-149)
[2017-07-11 07:58] VITALS: BP 136/77
[2017-07-11] MEDS: FAMOTIDINE 20 MG/2 ML VIAL IV SCH (09:00)
[2017-07-11] MEDS ORDERED: ALLOPURINOL 100 MG TAB PO SCH (09:00)
[2017-07-11] MEDS ORDERED: ASPIRIN 81 MG CHEW TAB PO SCH (09:00)
[2017-07-11] MEDS ORDERED: LISINOPRIL 10 MG TAB PO SCH (09:00)
[2017-07-11] MEDS ORDERED: SPIRONOLACTONE 25 MG TAB PO SCH (09:00)
[2017-07-11] MEDS ORDERED: CARVEDILOL 12.5 MG TAB PO SCH (09:00)
[2017-07-11] MEDS ORDERED: FUROSEMIDE 40 MG TAB PO SCH (09:00)
[2017-07-11 12:20] VITALS: BP 146/92
[2017-07-11] MEDS ORDERED: RIVAROXABAN 20 MG TABLET PO SCH (17:00)
--- NOTE | 2017-07-12 09:57 | Discharge Summary ---
PRIMARY DIAGNOSIS: Chest pain, patient found with intermittent wide-complex tachycardia. SECONDARY DIAGNOSES 1. Nonischemic cardiomyopathy. 2. Hypertension. 3. Hypothyroidism. 4. History of deep venous thrombosis in the upper extremity. 5. Syncope. 6. Polysubstance abuse. HOSPITAL COURSE: Mr. Wagner was admitted to [facility]. Patient had syncope. Device was interrogated with some wide-complex tachycardia. Patient's urinary drug screen was positive for cocaine, cannabinoids, and alcohol 112 mg/dL. He claims he was compliant with his cardiac medications. Cardiology Dr. Kelley who is in the same group as Dr. Fagan, the patient's primary floor polisher, discussed with the patient to refrain from getting exposed to such substances. Cardiac medications were the same with no change as he recommended. Patient discharged for outpatient followup. No new events on telemetry noted. ACTIVITIES: As tolerated. DIET: Cardiac diet. DISCHARGE MEDICATIONS: See discharge medication summary for detail. Greater than 30 minutes in direct care coordination for this discharge. JONATAN MYERS MD Job#: [id number] [employer]
== END 2017-07-11 12:00 | disposition left against medical advice (07) ==
LOC: ER 23:06 → ERHOLD 07-10 03:22 → MED/SURG3 07-10 12:20 → IMCU 07-10 22:54 → MED/SURG3 07-11 00:22
PROVIDERS: ADMIT Internal Medicine; ATTEND Internal Medicine
DX: R07.89 Other chest pain (principal); F12.10 Cannabis abuse, uncomplicated; F10.10 Alcohol abuse, uncomplicated; F14.10 Cocaine abuse, uncomplicated; I42.0 Dilated cardiomyopathy; Z95.810 Presence of automatic (implantable) cardiac defibrillator; R55 Syncope and collapse; Z86.718 Personal history of other venous thrombosis and embolism; Z79.01 Long term (current) use of anticoagulants; E03.9 Hypothyroidism, unspecified; E87.6 Hypokalemia; M10.9 Gout, unspecified; R00.0 Tachycardia, unspecified
CPT/HCPCS: 36415 ×3; 71045; 71260; 80053 ×2; 80061; 80307; 80320; 81001; 82150; 82550 ×3; 82553 ×3; 83690; 83735 ×2; 83880; 84443; 84484 ×3; 85025 ×2; 85379; 85610; 85730; 93005; 96360; 96374; 96375; 96376 ×2; 99285; G0378 ×2; J2270 ×3; J2405 ×2; J7040; Q9967

== ENCOUNTER 2017-08-04 00:23 | Emergency (ER) | payer OTHER ==
[~2017-08-04] VITALS: Ht 182.9 cm; Wt 85.7 kg
--- OUTSIDE RECORDS SUMMARY | 2017-08-04 00:25 | XMS REPORT | Continuity of Care Document ---
Author Author [facility] Organization [facility] Address [address] [place] [address] Phone Unavailable Care Team Providers Care Filling Technician Name Role Phone NONSTAFF PCP Unavailable Insurance Providers Guarantor Sung Wagner Address [address] [place] [address] Email N/A Payer [facility] Policy Number [id number] Subscriber's Name Sung Wagner Relationship 18 Self / Same As Patient Group Number [id number] Effective Date 16 Advance Directives Directive Response Recorded Date/Time Does the patient have an advance directive? Yes 07/10/17 2:41pm If yes, is advance directive on file with [facility]? No 07/10/17 2:41pm If not on file with [facility] will patient provide a copy? Yes 07/10/17 2:41pm Do you have a Directive to Physician? No 07/09/17 11:04pm Do you have a Medical Power of Department Secretary? No 07/09/17 11:04pm Do you have an out of hospital Do Not Resuscitate Order? No 07/09/17 11:04pm Do you have any special needs we should be aware of? No 07/09/17 11:04pm Do you have a support person here with you today? Yes 07/09/17 11:04pm Did patient receive Notice of Privacy Practices? Yes 07/09/17 11:04pm Did patient receive patient rights and responsibilities? Yes 07/09/17 11:04pm Problems Medical Problem Onset Date Status AICD discharge Unknown Cardiomyopathy Unknown Chest pain Unknown Substance abuse Unknown Medications Current Home Medications Medication Dose Units Route Directions Days Qty Instructions Start Date Allopurinol 100 Mg Tablet 100 Mg Oral Daily 30 Tab Aspirin 81 Mg Tab.chew 81 Mg Oral Daily Carvedilol (Coreg) 3.125 Mg Tab 6.25 Mg Oral Twice A Day Furosemide (Lasix) 40 Mg Tablet 40 Mg Oral Twice A Day 30 Tab Levothyroxine Sodium (Synthroid) 125 Mcg Tab 125 Mcg Oral Today At 6:30AM 30 Tab Lisinopril 10 Mg Tablet 10 Mg Oral Daily 30 Tab Metoprolol Tartrate 25 Mg Tablet 12.5 Mg Oral Daily Nitroglycerin (Nitrostat) 0.3 Mg Tab.subl 0.3 Mg Sublingual As Needed Rivaroxaban (Xarelto) 15 Mg Tablet 15 Mg Oral Twice A Day 60 Days 01/18/17 Spironolactone 25 Mg Tablet 100 Mg Oral Twice A Day 60 Tab Social History Social History Problem Response Recorded Date/Time Onset Date Status Hx Psychiatric Problems No 07/10/2017 2:41pm Not Applicable Not Applicable Hx Eating Disorder No 07/10/2017 2:41pm Not Applicable Not Applicable Hx Substance Use Disorder No 07/10/2017 2:41pm Not Applicable Not Applicable Hx Depression No 07/10/2017 2:41pm Not Applicable Not Applicable Hx Alcohol Use Yes 07/10/2017 2:41pm Not Applicable Not Applicable Hx Substance Use Treatment No 07/10/2017 2:41pm Not Applicable Not Applicable Hx Physical Abuse No 07/10/2017 2:41pm Not Applicable Not Applicable Smoking Status Start Date Stop Date Current some day smoker Hospital Discharge Instructions No hospital discharge instruction information available. Plan of Care Discharge Date 07/11/17 12:00pm Disposition AGAINST MEDICAL ADVICE Prescriptions See Medication Section Functional Status Query Response Date Recorded Assistive Devices None July 10, 2017 3:42pm Ambulation Ability Independent July 10, 2017 3:42pm Toileting Ability Independent July 11, 2017 9:45am Allergies, Adverse Reactions, Alerts No known allergies. Immunizations No immunization information available. Vital Signs Acute Vital Signs Vital Response Date/Time Temperature (Fahrenheit) 96.3 degrees F (97.6 - 99.5) 07/11/2017 12:20pm Pulse Pulse Rate (adult) 77 bpm (60 - 90) 07/11/2017 12:20pm Respiratory Rate 18 bpm (12 - 24) 07/11/2017 12:20pm Blood Pressure 146/92 mm Hg 07/11/2017 12:20pm Height 6 ft 0 in 07/09/2017 11:15pm Weight 189 lb 07/10/2017 12:47pm Body Mass Index 25.6 kg/m^2 07/10/2017 2:41pm Results Laboratory Results Test Name Result Units Flags Reference Collection Date/Time Result Date/ Time Comments Free Thyroxine Index 1.5966 1.4-3.8 12/29/2016 1:04pm 12/29/2016 2: 41pm Thyroxine (T4) 4.62 ug/dL 4.5-10.9 12/29/2016 1:04pm 12/29/2016 2:41pm Triiodothyronine (T3) Uptake 34.56 % 22.50-37.00 12/29/2016 1:04pm 2:41pm Urine Mucus RARE RARE 03/08/2017 12:30pm 03/08/2017 3:33pm Bedside Glucose 156 mg/dL H 70-120 03/10/2017 7:54am 03/10/2017 8:01am Meter ID: [id number] White Blood Count 4.20 x10e3/uL L 4.8-10.8 07/11/2017 6:43am 07/11/2017 7:11am Red Blood Count 4.20 x10e6/uL L 4.3-5.7 07/11/2017 6:43am 07/11/2017 7: 11am Hemoglobin 13.3 g/dL L 14.0-18.0 07/11/2017 6:43am 07/11/2017 7:11am Hematocrit 39.6 % 38.2-49.6 07/11/2017 6:43am 07/11/2017 7:11am Mean Corpuscular Volume 94.3 fL 81-99 07/11/2017 6:43am 07/11/2017 7: 11am Mean Corpuscular Hemoglobin 31.7 pg 28-32 07/11/2017 6:4307/11/2017 7:11am Mean Corpuscular Hemoglobin Concent 33.6 g/dL 31-35 07/11/2017 6:4307/11/2017 7:11am Red Cell Distribution Width 15.9 % H 11.7-14.4 07/11/2017 6:432017 7:11am Platelet Count 125 x10e3/uL L 140-360 07/11/2017 6:4307/11/2017 7: 11am Neutrophils (%) (Auto) 53.1 % 38.7-80.0 07/11/2017 6:4307/11/2017 7: 11am Lymphocytes (%) (Auto) 32.4 % 18.0-39.1 07/11/2017 6:4307/11/2017 7: 11am Monocytes (%) (Auto) 11.9 % H 4.4-11.3 07/11/2017 6:4307/11/2017 7: 11am Eosinophils (%) (Auto) 1.9 % 0.0-6.0 07/11/2017 6:4307/11/2017 7: 11am Basophils (%) (Auto) 0.5 % 0.0-1.0 07/11/2017 6:4307/11/2017 7:11am IM GRANULOCYTES % 0.2 % 0.0-1.0 07/11/2017 6:4307/11/2017 7:11am Neutrophils # (Auto) 2.2 2.1-6.9 07/11/2017 6:4307/11/2017 7:11am Lymphocytes # (Auto) 1.4 1.0-3.2 07/11/2017 6:4307/11/2017 7:11am Monocytes # (Auto) 0.5 0.2-0.8 07/11/2017 6:4307/11/2017 7:11am Eosinophils # (Auto) 0.1 0.0-0.4 07/11/2017 6:4307/11/2017 7:11am Basophils # (Auto) 0.0 0.0-0.1 07/11/2017 6:4307/11/2017 7:11am Absolute Immature Granulocyte (auto 0.01 x10e3/uL 0-0.1 07/11/2017 6: 43am 07/11/2017 7:11am Prothrombin Time 13.7 seconds 11.9-14.5 07/09/2017 11:15pm 07/10/2017 12:04am Prothromb Time International Ratio 1.14 07/09/2017 11:15pm 2017 12:04am Oral Anticoagulant Therapy INR Values: 1. Low Intensity Therapy 1.5 - 2.0 2. Moderate Intensity Therapy 2.0 - 3.0 3. High Intensity Therapy(1) 2.5 - 3.5 4. High Intensity Therapy(2) 3.0 - 4.0 5. Panic Value INR > 5.0 Activated Partial Thromboplast Time 34.0 seconds 23.8-35.5 07/09/2017 11 :15pm 07/10/2017 12:04am D-Dimer Quantitative (PE/DVT) 3.67 ug/mLFEU H 0.00-0.45 07/09/2017 11: 15pm 07/10/2017 12:04am Urine Color YELLOW YELLOW 07/09/2017 11:15pm 07/09/2017 11:47pm Urine Clarity CLEAR CLEAR 07/09/2017 11:15pm 07/09/2017 11:47pm Urine Specific Shaw 1.005 L 1.010-1.025 07/09/2017 11:15pm 2017 11:47pm Urine pH 5 5 - 7 07/09/2017 11:15pm 07/09/2017 11:47pm Urine Leukocyte Esterase NEGATIVE NEGATIVE 07/09/2017 11:15pm 2017 11:47pm Urine Nitrite NEGATIVE NEGATIVE 07/09/2017 11:15pm 07/09/2017 11: 47pm Urine Protein NEGATIVE NEGATIVE 07/09/2017 11:15pm 07/09/2017 11: 47pm Urine Glucose (UA) NEGATIVE NEGATIVE 07/09/2017 11:15pm 07/09/2017 11 :47pm Urine Ketones NEGATIVE NEGATIVE 07/09/2017 11:15pm 07/09/2017 11: 47pm Urine Opiates Screen NEGATIVE NEGATIVE 07/09/2017 11:15pm 07/09/2017 11:48pm Urine Barbiturates Screen NEGATIVE NEGATIVE 07/09/2017 11:15pm 2017 11:48pm Urine Phencyclidine Screen NEGATIVE NEGATIVE 07/09/2017 11:15pm 07/09 11:48pm Urine Amphetamines Screen NEGATIVE NEGATIVE 07/09/2017 11:15pm 2017 11:48pm Urine Methamphetamines Screen NEGATIVE NEGATIVE 07/09/2017 11:15pm 11:48pm Urine Benzodiazepines Screen NEGATIVE NEGATIVE 07/09/2017 11:15pm 04/2017 11:48pm Urine Cocaine Screen POSITIVE H NEGATIVE 07/09/2017 11:15pm 2017 11:48pm This test provides only a screen. Positive results should be repeated by a confirmatory test.ALL TESTS PERFORMED MANUALLY ON SIGNIFY ER TEST Urine Cannabinoids Screen POSITIVE H NEGATIVE 07/09/2017 11:15pm 07/09 11:48pm THESE RESULTS ARE FOR MEDICAL TREATMENT ONLY *THIS REPORT CONTAINS UNCONFIRMED SCREENING RESULTS* POSITIVE RESULTS WILL BE CONFIRMED BY REFERENCE LAB UPON REQUEST CUT-OFF DRUG CLASS CONCENTRATION ng/mL Amphetamines 1000 Methamphetamines 1000 Cocaine 300 Opiate 300 Phencyclidine 25 Cannabinoid 50 Barbiturates 300 Benzodiazepine 300 Methadone 300 This test provides only a screen. Positive results should be repeated by a confirmatory test. Urine Methadone Screen NEGATIVE NEGATIVE 07/09/2017 11:15pm 2017 11:48pm THESE RESULTS ARE FOR MEDICAL TREATMENT ONLY *THIS REPORT CONTAINS UNCONFIRMED SCREENING RESULTS* POSITIVE RESULTS WILL BE CONFIRMED BY REFERENCE LAB UPON REQUEST CUT-OFF DRUG CLASS CONCENTRATION ng/mL Amphetamines 1000 Methamphetamines 1000 Cocaine Metabolite 300 Opiate 300 Phencyclidine 25 Cannabinoid 50 Barbiturates 300 Benzodiazepine 300 Methadone 300 Urine Urobilinogen 0.2 mg/dL 0.2 - 1 07/09/2017 11:15pm 07/09/2017 11: 47pm Urine Bilirubin NEGATIVE NEGATIVE 07/09/2017 11:15pm 07/09/2017 11: 47pm Urine Blood NEGATIVE NEGATIVE 07/09/2017 11:15pm 07/09/2017 11:47pm Urine WBC 0-5 /HPF 0-5 07/09/2017 11:15pm 07/09/2017 11:55pm Urine RBC 0-5 /HPF 0-5 07/09/2017 11:15pm 07/09/2017 11:55pm Urine Bacteria NONE /HPF NONE 07/09/2017 11:15pm 07/09/2017 11:55pm Urine Epithelial Cells NONE /LPF NONE 07/09/2017 11:15pm 07/09/2017 11: 55pm Sodium Level 138 mmol/L 136-145 07/11/2017 6:43am 07/11/2017 7:37am Potassium Level 3.9 mmol/L 3.5-5.1 07/11/2017 6:43am 07/11/2017 7:37am Chloride Level 105 mmol/L 98-107 07/11/2017 6:43am 07/11/2017 7:37am Carbon Dioxide Level 26 mmol/L 22-29 07/11/2017 6:43am 07/11/2017 7: 37am Anion Gap 10.9 mmol/L 8-16 07/11/2017 6:43am 07/11/2017 7:37am Blood Urea Nitrogen 7 mg/dL 7-07/11/2017 6:43am 07/11/2017 7:37am Creatinine 0.82 mg/dL 0.72-1.25 07/11/2017 6:43am 07/11/2017 7:37am BUN/Creatinine Ratio 9 6-07/11/2017 6:43am 07/11/2017 7:37am Estimat Glomerular Filtration Rate > 60 ML/MIN 60- 07/11/2017 6:43am 7:37am Ranges were taken from the National Kidney Disease Education Program and the National [employer] literature. Reference ranges: 60 or greater: Normal 16-59 (for 3 consecutive months): Chronic kidney disease 15 or less: Kidney failure Glucose Level 89 mg/dL 74-118 07/11/2017 6:43am 07/11/2017 7:37am Calcium Level 8.6 mg/dL 8.4-10.2 07/11/2017 6:43am 07/11/2017 7:37am Magnesium Level 1.7 MG/DL 1.3-2.1 07/10/2017 8:30am 07/10/2017 10:50am Total Bilirubin 1.7 mg/dL H 0.2-1.2 07/11/2017 6:43am 07/11/2017 7:37am Aspartate Amino Transf (AST/SGOT) 37 IU/L H 5-34 07/11/2017 6:43am 07/11 7:37am Alanine Aminotransferase (ALT/SGPT) 49 IU/L 0-55 07/11/2017 6:43am 06/2017 7:37am Total Protein 6.1 g/dL L 6.5-8.1 07/11/2017 6:43am 07/11/2017 7:37am Albumin 3.0 g/dL # L 3.5-5.0 07/11/2017 6:43am 07/11/2017 7:37am Globulin 3.1 g/dL 2.3-3.5 07/11/2017 6:43am 07/11/2017 7:37am Albumin/Globulin Ratio 1.0 0.8-2.0 07/11/2017 6:43am 07/11/2017 7: 37am Alkaline Phosphatase 55 IU/L 40-150 07/11/2017 6:43am 07/11/2017 7: 37am Triglycerides Level 72 MG/DL 0-149 07/11/2017 6:43am 07/11/2017 7:37am Cholesterol Level 147 MD/DL 0-199 07/11/2017 6:43am 07/11/2017 7:37am Less than 200 mg/dL Low Risk 201 - 239 mg/dL Borderline Risk 240 mg/dl and greater High Risk LDL Cholesterol 39 MG/DL L 60-130 07/11/2017 6:43am 07/11/2017 7:37am HDL Cholesterol 94 MG/DL H 40-60 07/11/2017 6:43am 07/11/2017 7:37am Cholesterol/HDL Ratio 1.6 L 3.9-4.7 07/11/2017 6:43am 07/11/2017 7: 37am B-Type Natriuretic Peptide 12.6 pg/mL 0-100 07/09/2017 11:15pm 2017 12:22am Creatine Kinase 51 IU/L 30-200 07/11/2017 6:43am 07/11/2017 7:22am Creatine Kinase MB 0.80 ng/mL 0-5.0 07/11/2017 6:43am 07/11/2017 7: 35am Troponin I < 0.001 ng/mL 0-0.300 07/11/2017 6:43am 07/11/2017 7:35am Amylase Level 85 U/L 25-125 07/09/2017 11:15pm 07/10/2017 12:04am Lipase 58 U/L 8-78 07/09/2017 11:15pm 07/10/2017 12:04am Thyroid Stimulating Hormone (TSH) 3.321 uIU/mL 0.350-4.940 07/09/2017 11 :15pm 07/10/2017 12:22am Ethyl Alcohol Level 111.8 mg/dL H 0.0-10.0 07/09/2017 11:15pm 2017 12:04am Procedures Procedure Status Date Provider(s) Computed tomography of chest with contrast Active 01/16/17 CARSON KANG MD Computed tomography of chest with contrast Active 03/09/17 JALIL MURILLO MD Computed tomography of chest with contrast Active 07/10/17 MATTHIEU SPENCE MD Encounters Encounter Location Arrival/Admit Date Discharge/Depart Date Attending Provider [facility]charged Inpatient [facility]obs[facility] 07/10/17 3:22am 06/25 12:00pm YOANDY BOYER MD Discharged Inpatient (obs) [facility] 03/08/17 5:52pm 04/26 8:23am JALIL MURILLO MD Discharged Inpatient (obs) [facility] 01/16/17 12:27pm 12:35pm TONG LARRY MD Discharged Inpatient (obs) [facility] 12/29/16 5:15pm 3:06pm SUMMER DAWSON MD
--- OUTSIDE RECORDS SUMMARY | 2017-08-04 00:25 | XMS REPORT | Clinical Summary ---
Author Author [employer] Organization [employer] Address Unknown Phone Unavailable Care Team Providers Care Carton Counter Feeder Name Role Phone Celia Kessler MD PCP [...] Encounters Date Type Specialty Care Team Description 08/03/2017 Emergency Emergency Medicine Anton Haynes Chest pain, unspecified MD Semaj type (Primary Dx) 06/12/2017 Emergency General Internal Medicine Patrick, Ernest Syncope, unspecified - Carlos Parker MD syncope type (Primary 06/13/2017 Alvarez Caputo, Dx); Jomar Schwartz Chest pain, unspecified Aaron [...] MD infarction (Primary Dx) 01/05/2017 [facility] General Internal Medicine Dewey Astorga MD Acute [...] Medicine Amee Camargo MD 08/13/2016 [facility] General Internal Medicine Physician, Emergency, MD - Encounter Nathaniel Mclain DO 08/14/2016 Amee Camargo MD 08/13/2016 Orders Only Emergency Medicine Devonte Miller MD after 08/03/2016 Family History Medical History Relation Name Comments [...] Vital Sign Reading Time Taken Blood Pressure 151/90 08/03/2017 10:57 PM CDT Pulse 81 08/03/2017 10:57 PM CDT Temperature 36.6 C (97.9 F) 08/03/2017 10:57 PM CDT Respiratory Rate 19 08/03/2017 10:57 PM CDT Oxygen Saturation 98% 08/03/2017 10:57 PM CDT Inhaled Oxygen - - Concentration Weight 86.2 kg (190 lb) 08/03/2017 4:54 PM CDT Height 182.9 cm (6') 08/03/2017 4:54 PM CDT Body Mass Index 25.77 08/03/2017 4:54 PM CDT Plan of Treatment Health Maintenance Due Date Last Done Comments INFLUENZA VACCINE 11/08/2017 Implants Implanted Type Area Marine Engine Mechanic Device Expiration Model / Identifier Date Serial / Lot Pacemaker-11/22/2016 Pacemaker Implanted: 11/22/2016 by Franky Stack MD (Quantity not on file) Procedures Procedure Name Priority Date/Time Associated Diagnosis Comments ECHOCARDIOGRAM 2D Routine 06/13/2017 Results for this COMPLETE W MMODE SPECTRAL 8:33 AM PULLBOAT ENGINEER procedure are in the COLOR DOPPLER (61424) results section. CV STRESS TEST NUCLEAR Routine 02/15/2017 Results for this CARDIO 11:30 AM PULLBOAT ENGINEER procedure are in the results section. ECHOCARDIOGRAM 2D Routine 02/14/2017 Results for this COMPLETE W MMODE SPECTRAL 4:10 PM PULLBOAT ENGINEER procedure are in the COLOR DOPPLER (81294) results section. ECHOCARDIOGRAM 2D 08/14/2016 Results for this COMPLETE W MMODE SPECTRAL 3:32 PM CDT procedure are in the COLOR DOPPLER (25509) results section. CV STRESS TEST Routine 08/14/2016 Results for this 2:27 PM CDT procedure are in the results section. after 08/03/2016 Results * Troponin (08/03/2017 8:06 PM) Only the most recent of 30 results within the time period is included. [...] myocardial injury. Specimen Performing Laboratory Plasma specimen [facility] [place] [address] [place] [address] * XR Chest 2 Vw (08/03/2017 6:43 PM) Only the most recent of 10 results within the time period is included. Specimen Performing Laboratory [facility] [address] [place] [address] Narrative EXAMINATION:XR CHEST 2 VW CLINICAL HISTORY:Chest Pain IMPRESSION: There is a transvenous pacemaker in good position. Heart and mediastinum are normal. Lungs are clear. No change from June 12, 2017. [facility]-[id number] Procedure Note Hm Interface, Radiology Results Incoming - 08/03/2017 6:49 PM CDT EXAMINATION: XR CHEST 2 VW CLINICAL HISTORY: Chest Pain IMPRESSION: There is a transvenous pacemaker in good position. Heart and mediastinum are normal. Lungs are clear. No change from June 12, 2017. [facility]-[id number] * Estimated GFR (08/03/2017 5:09 PM) Only the most recent of 16 results within the time period is included. Component Value Ref Range GFR Non Af Amer 81 mL/min/1.73 m2 GFR Af Amer >90 mL/min/1.73 [...] and Americans. Specimen Performing Laboratory Plasma specimen [facility] [place] [facility] [facility] [place] [address] [place] [address] * CBC with platelet and differential (08/03/2017 5:09 PM) Only the most recent of 16 results within the time period is included. Component Value Ref Range WBC 8.1 4.2 - 11.0 k/uL RBC 4.91 4.04 - 5.86 m/uL HGB 15.5 13.0 - 17.3 g/dL HCT 46.4 (H) 34.0 - 45.0 % MCV 94.5 80.0 - 98.0 fL MCH 31.6 27.0 - 34.0 pg MCHC 33.4 31.5 - 36.5 g/dL RDW - SD 50.7 37.0 - 51.0 fL MPV 10.9 (H) 7.4 - 10.4 fL Platelet count 170 150 - 400 k/uL Nucleated RBC 0.00 /100 WBC Neutrophils 74.4 (H) 36.0 - 66.0 % Lymphocytes 15.5 (L) 24.0 - 44.0 % Monocytes 8.3 (H) 0.0 - 6.0 % Eosinophils 0.6 0.0 - 6.0 % Basophils 1.0 0.0 - 1.2 % Immature granulocytes 0.2 0.0 - 1.0 % Specimen Performing Laboratory Blood [facility] [place] [facility] [place]IC[facility] [address] [place] [address] * B natriuretic peptide (08/03/2017 5:09 PM) Only the most recent of 12 results within the time period is included. Component Value Ref Range BNP 51 0 - 100 pg/mL Specimen Performing Laboratory Blood [facility] [place] [facility] [place]OM[facility] MEDICINE [address] [place] [address] * Comprehensive metabolic panel (08/03/2017 5:09 PM) Only the most recent of 12 results within the time period is included. Component Value Ref Range Sodium 141 135 - 150 mEq/L Potassium 3.8 3.5 - 5.0 mEq/L Chloride 107 100 - 109 mEq/L CO2 28 24 - 32 mmol/L Anion gap 6 (L) 7 - 15 mEq/L Comment: Starting from July , anion gap calculation no longer incorporates potassium. Please note the change. BUN 7 7 - 18 mg/dL Creatinine 1.0 0.8 - 1.5 mg/dL Glucose 120 (H) 65 - 100 mg/dL Calcium 8.6 8.6 - 10.7 mg/dL Protein 7.7 6.3 - 8.2 g/dL Albumin 3.5 3.2 - 5.0 g/dL A/G ratio 0.8 0.7 - 3.8 Alkaline phosphatase 77 30 - 120 U/L AST 31 15 - 37 U/L ALT 51 30 - 65 U/L Total bilirubin 0.7 0.2 - 1.2 mg/dL Specimen Performing Laboratory Plasma specimen [facility] [place] [facility] [place]IC[facility] [address] [facility] [place] [address] * Echocardiogram complete w contrast and 3D if needed (06/13/2017 8:33 AM) Specimen Performing Laboratory [facility] [address] [place] [address] Narrative The left ventricle chamber size is [...] 4:33 AM) Only the most recent of 4 [...] (>=200 mg/dL) Specimen Performing Laboratory Plasma specimen [facility] [place] [facility] [place]OM[facility] MEDICINE [address] [facility] [place] [address] * Magnesium level (06/12/2017 11:14 PM) Only the most recent of 2 results within the time period is included. Component Value Ref Range Magnesium 1.80 1.60 - 2.40 mg/dL Specimen Performing Laboratory Plasma specimen [facility] [place] [facility] [place]IC[facility] [address] [facility] [place] [address] * ECG 12 lead (06/12/2017 7:31 PM) Only the most recent of 17 results within the time period is included. Component Value Ref Range Ventricular rate 82 Atrial rate 82 CA interval 122 QRSD interval 96 QT interval 398 QTC interval 464 P axis 1 55 QRS axis 1 48 T wave axis 82 EKG impression Normal sinus rhythm-Cannot rule out Anterior infarct , age undetermined-Abnormal ECG-- Specimen Performing Laboratory [facility] [address] [place] [address] * ECG ED Preliminary Interpretation - NOT AN ORDER (06/12/2017 7:23 PM) Only the most recent of 8 results within the time period is included. Juli Nguyen Jr., MD 06/13/20171:37 PM ECG ED Preliminary Interpretation - Not an Order Performed by: VÍCTOR NGUYEN JR. Authorized by: VÍCTOR NGUYEN JR. ECG reviewed by ED Physician in the absence of a airframe and power plant mechanic: yes Interpretation: Interpretation: normal Rate: ECG rate:92 ECG rate assessment: normal Rhythm: Rhythm: sinus rhythm Ectopy: Ectopy: none QRS: QRS axis:Normal Conduction: Conduction: normal ST segments: ST segments:Normal T waves: T waves: flattening Flattening:V4, V5 and V6 Q waves: Q waves:III, II and aVF Other findings: Other findings: LVH Comments: QTC noted to be 484 * Thyroid stimulating hormone (03/15/2017 8:04 AM) Only the most recent of 3 results within the time period is included. Component Value Ref Range TSH 5.10 (H) 0.38 - 4.82 uIU/mL Specimen Performing Laboratory Plasma specimen [facility] [place] [facility] [place]IC[facility] [address] [address] * T4, free (03/15/2017 8:04 AM) Component Value Ref Range T4, free 0.95 0.70 - 1.61 ng/dL Specimen Performing Laboratory Plasma specimen [facility] [place] [facility] [place]IC[facility] [address] [address] * Hemoglobin A1c (03/15/2017 4:45 AM) Component [...] Specimen Performing Laboratory Blood [facility] [place] [facility] [facility] [place] [facility] [place] [place]IC[place] [address] [place] [address] [place] [address] * Prothrombin time with INR (03/14/2017 3:52 PM) Only the most recent of 9 results within the time period is included. [...] values over 4.0. Specimen Performing Laboratory Blood [facility] [place] [facility] [place] [place]OM[facility] MEDICINE [address] [facility] [address] [place] [address] * Creatine kinase, total (CPK) (03/14/2017 3:52 PM) Only the most recent of 11 results within the time period is included. Component Value Ref Range Creatine kinase 49 (L) 61 - 224 U/L Specimen Performing Laboratory Plasma specimen [facility] [place] [facility] [place]IC[facility] [address] [place] [address] * Cv stress procedure (02/15/2017 11:30 AM) [...] Target HR 149.60 bpm Specimen Performing Laboratory [facility] [address] [place] [address] * Myocardial perfusion (02/15/2017 11:30 AM) Component Value Ref Range Target HR 149.60 bpm Resting HR 61 BPM Resting BP 110/72 mmHg Specimen Performing Laboratory [facility] [address] [place] [address] Narrative There are no perfusion defects. Study Quality: good. Abnormal left ventricular systolic function. * Basic metabolic panel (02/15/2017 5:50 AM) Only the most recent of 4 [...] 10.2 mg/dL Specimen Performing Laboratory Plasma specimen [facility] DEPARTMENT OF PATHOLOGY AND GENOMIC MEDICINE [address] [place] [address] * Echocardiogram complete w contrast and 3D [...] slope 4.50 Specimen Performing Laboratory [facility] [address] [facility] [place] [address] Narrative The left ventricle chamber size is moderately enlarged. Left ventricular systolic function severely impaired . Left Ventricular ejection fraction is 20 - 25%. Right ventricular size is normal. No pericardial effusion * Pv duplex venous upper extremity (02/14/2017 1:40 PM) Only the most recent of 2 results within the time period is included. Specimen Performing Laboratory [facility] [address] [place] [address] Narrative There is evidence of DVT in the left upper extremity involving the subclavian vein. Additionally, there is thrombosis of the Cephalic vein distally. * CT Angiogram Chest W Contrast Abdomen W Contrast Pelvis W Contrast (2016 11:52 PM) Specimen Performing Laboratory [facility] [address] [place] [address] Narrative Examination:CT ANGIOGRAM CHEST ABDOMEN PELVIS W [...] abnormality identified in the abdomen or pelvis. [facility]-[id number] Procedure Note Interface, Radiology Results Incoming - 02/14/2017 12:17 AM PULLBOAT ENGINEER Examination: CT ANGIOGRAM CHEST ABDOMEN PELVIS W [...] abnormality identified in the abdomen or pelvis. [facility]-[id number] * Partial thromboplastin time, activated (02/13/2017 9:00 PM) Only the most recent of 5 results within the time period is included. Component Value Ref Range PTT 29.7 23.0 - 36.0 sec Comment: PTT therapeutic range for unfractionated heparin is 61.0-112.0 seconds which corresponds to Anti-Xa 0.3-0.7 U/ml. Specimen Performing Laboratory Blood [facility] DEPARTMENT OF PATHOLOGY AND GENOMIC MEDICINE [address] [place] [address] * Hepatic function panel (02/13/2017 9:00 PM) [...] 50 U/L Specimen Performing Laboratory Plasma specimen [facility] DEPARTMENT OF PATHOLOGY AND GENOMIC MEDICINE [address] [place] [address] * Anti Xa, unfractionated (01/08/2017 9:36 AM) Only the most recent of 10 results within the time period is included. Component Value Ref Range Anti Xa, unfractionated 0.79 (H)Comment: Therapeutic Range: 0.30 - 0.70 0.30 - 0.70 U/mL U/mL Specimen Performing Laboratory Blood [facility] [place] [facility] [place]IC[facility] [address] [place] [address] * Manual differential (01/07/2017 5:30 AM) Component [...] slide review Marcella adequate Specimen Performing Laboratory [facility] [place] [facility] [place] [place]OM[facility] MEDICINE [address] [place] [address] * Uric acid level (01/05/2017 8:27 PM) Component Value Ref Range Uric acid 5.1 3.9 - 7.8 mg/dL Specimen Performing Laboratory Plasma specimen [facility] [place] [facility] [place]IC[facility] [address] [place] [address] * XR Chest 1 Vw Portable (11/11/2016 1:45 PM) Specimen Performing Laboratory [facility] [address] [place] [address] Narrative EXAMINATION:XR CHEST 1 VW PORTABLE CLINICAL HISTORY:Chest Pain COMPARISON:October 03, 2016 FINDINGS: Heart size is within normal limits. The mediastinum is unremarkable. The lungs are clear. IMPRESSION: No acute finding is visualized [id number] Procedure Note Hm Interface, Radiology Results Incoming - 11/11/2016 2:21 PM CDT EXAMINATION: XR CHEST 1 VW PORTABLE CLINICAL HISTORY: Chest Pain COMPARISON: October 03, 2016 FINDINGS: Heart size is within normal limits. The mediastinum is unremarkable. The lungs are clear. IMPRESSION: No acute finding is visualized [id number] * CK-MB (09/03/2016 10:28 PM) Only the most recent of 5 results within the time period is included. Component Value Ref Range CK-MB 1.4 0.5 - 3.2 ng/mL Specimen Performing Laboratory Plasma specimen [facility] [place] [facility] [place]IC[facility] [address] [place] [address] * Echocardiogram complete w contrast and 3D if needed (08/14/2016 3:32 PM) Specimen Performing Laboratory [facility] [address] [place] [address] Narrative Transthoracic Echocardiogram Report [address] [place] [address] Name:PAU WAGNER Sex: M Date: 2016 Encounter:: 1970 Time: 3:32:06 PM 46 yearsHeight: 72 in Room #:244A Weight: 198.0 lbs BP:134/70 mmHg BSA: 2.1 m Ref. Physician:Amee Camargo Food Service Manager: Ty Mccollum Indications: Chest pain Study Details: [...] PM CDT Transthoracic Echocardiogram Report [address] [place] [address] Name: PAU WAGNER Sex: Ira Date: 08/14/2016 Encounter: : 1970 Time: 3:32:06 PM Age: 46 years Height: 72 in Room #: 244A Weight: 198.0 lbs BP: 134/70 mmHg BSA: 2.1 m Ref. Physician: Amee Camargo Food Service Manager: Ty Mccollum Indications: Chest pain Study Details: [...] -Nuclear report pending - Specimen Performing Laboratory [facility] [address] [place] [address] * CT Angiogram Pe Chest (08/13/2016 11:24 PM) [facility] [address] [place] [address] Narrative CTA PE CHEST INDICATION:Chest pain TECHNIQUE: [...] No pulmonary embolism or acute pulmonary infiltrate. [facility]-[id number] Procedure Note [facility], Radiology Conversion - 08/13/2016 11:35 PM CDT [...] No pulmonary embolism or acute pulmonary infiltrate. [facility]-[id number] * XR Chest 1 Vw (08/13/2016 8:03 PM) Specimen Performing Laboratory [facility] [address] [place] [address] Narrative EXAMINATION:CHEST 1 VIEW PA AP CLINICAL HISTORY:Chest pain COMPARISON:07/29/2016 IMPRESSION: No acute cardiopulmonary disease. FINDINGS: The cardiomediastinal silhouette, lungs, and regional skeletal structures are within normal limits for age. Procedure Note Hm Interface, Radiology Conversion - 08/13/2016 8:49 PM CDT EXAMINATION: CHEST 1 VIEW PA AP CLINICAL HISTORY: Chest pain COMPARISON: 07/29/2016 IMPRESSION: No acute cardiopulmonary disease. FINDINGS: The cardiomediastinal silhouette, lungs, and regional skeletal structures are within normal limits for age. after 08/03/2016 Insurance Payer Benefit Subscriber ID Type Phone Address Plan / Group [facility]ICA[facility] xxxxxxxxx O COMM STAR+ JESUS MANUEL
[2017-08-04 00:55] LABS: AMPHETAMINES SCREEN,URINE NEGATIVE (NEGATIVE); BASOPHILS % 0.5 % (0.0-1.0); BENZODIAZEPINES SCREEN,URINE NEGATIVE (NEGATIVE); EOSINOPHILS # (AUTO) 0.1 (0.0-0.4); EOSINOPHILS % 1.1 % (0.0-6.0); HEMATOCRIT 45.5 % (38.2-49.6); HEMOGLOBIN 15.7 g/dL (14.0-18.0); LYMPHOCYTES # (AUTO) 2.1 (1.0-3.2); LYMPHOCYTES % 26.6 % (18.0-39.1); MEAN CORPUSCULAR HEMOGLOBIN 32.2 pg (28-32); MEAN CORPUSCULAR HGB CONC 34.5 g/dL (31-35); MEAN CORPUSCULAR VOLUME 93.2 fL (81-99); MONOCYTES # (AUTO) 0.6 (0.2-0.8); MONOCYTES % 7.1 % (4.4-11.3); NEUTROPHILS # (AUTO) 5.2 (2.1-6.9); NEUTROPHILS % 64.6 % (38.7-80.0); PHENCYCLIDINE SCREEN,URINE NEGATIVE (NEGATIVE); PLATELET COUNT 176 x10e3/uL (140-360); RED BLOOD COUNT 4.88 x10e6/uL (4.3-5.7); RED CELL DISTRIBUTION WIDTH 14.6 % (11.7-14.4)
[2017-08-04 01:01] LABS: CLARITY,URINE CLEAR (CLEAR); COLOR,URINE YELLOW (YELLOW); KETONES,URINE NEGATIVE (NEGATIVE); LEUKOCYTE ESTERASE ,URINE NEGATIVE (NEGATIVE); NITRITE,URINE NEGATIVE (NEGATIVE); PROTEIN,URINE DIPSTICK NEGATIVE (NEGATIVE)
[2017-08-04 01:03] LABS: BILIRUBIN,URINE 1+ (NEGATIVE); INR 1.06; PARTIAL THROMBOPLASTIN TIME 28.6 seconds (23.8-35.5); URINE UROBILINOGEN 0.2 mg/dL (0.2 - 1)
[2017-08-04 01:20] LABS: BACTERIA,URINE FEW /HPF; EPITHELIAL CELLS,URINE RARE /LPF; MUCUS,URINE MANY (RARE); RBC,URINE 0-5 /HPF (0-5); TRICHOMONAS,URINE FEW
--- NOTE | 2017-08-04 01:42 | Diagnostic Imaging Report ---
EXAMINATION: CHEST SINGLE (PORTABLE) INDICATION: Chest pain COMPARISON: 07/10/2017 FINDINGS: TUBES and LINES: The pacemaker is intact. LUNGS: Lungs are not well inflated. Lungs are clear. There is no evidence of pneumonia or pulmonary edema. PLEURA: No pleural effusion or pneumothorax. HEART AND MEDIASTINUM: The cardiomediastinal silhouette is unremarkable. BONES AND SOFT TISSUES: No acute osseous lesion. Soft tissues are unremarkable. UPPER ABDOMEN: No free air under the diaphragm. IMPRESSION: No acute thoracic abnormality. Signed by: Dr. Kris Argueta M.D. on 08/04/2017 1:38 AM
[2017-08-04 01:45] LABS: ALANINE AMINOTRANSFERASE 41 IU/L (0-55); ALBUMIN 3.5 g/dL (3.5-5.0); ALBUMIN/GLOBULIN RATIO 0.8 (0.8-2.0); ALKALINE PHOSPHATASE 72 IU/L (40-150); ANION GAP 14.1 mmol/L (8-16); BLOOD UREA NITROGEN 9 mg/dL (7-26); BUN/CREATININE RATIO 8 (6-25); CALCIUM 9.2 mg/dL (8.4-10.2); CARBON DIOXIDE 22 mmol/L (22-29); CHLORIDE 101 mmol/L (98-107); CREATINE KINASE 168 IU/L (30-200); CREATININE, SERUM 1.09 mg/dL (0.72-1.25); EST GLOMERULAR FILTRATION RATE > 60 ML/MIN (60-); POTASSIUM 3.1 mmol/L (3.5-5.1); SODIUM 134 mmol/L (136-145)
[2017-08-04 01:52] LABS: GLUCOSE 195 mg/dL (74-118)
[2017-08-04] MEDS ORDERED: POTASSIUM CHLORIDE 20 MEQ TAB CR PO STA (02:50)
[2017-08-04] MEDS ORDERED: ACETAMINOPHEN 325 MG TAB PO ONE (05:15)
[2017-08-04 05:31] LABS: CREATINE KINASE 130 IU/L (30-200)
[2017-08-04 05:53] VITALS: BP 140/86
== END 2017-08-04 06:03 | disposition home or self-care (01) ==
LOC: ER 00:23
DX: R07.89 Other chest pain (principal); F14.10 Cocaine abuse, uncomplicated; F19.10 Other psychoactive substance abuse, uncomplicated
CPT/HCPCS: 36415; 71045; 80053; 80307; 80320; 81001; 82550; 82553; 83880; 84484; 85025; 85610; 85730; 93005; 99284

== ENCOUNTER 2020-10-12 22:51 | Emergency (ER) | payer OTHER ==
[~2020-10-12] VITALS: Ht 182.9 cm; Wt 85.7 kg
[2020-10-12 22:59] LABS: BASOPHILS # (AUTO) 0.1 (0.0-0.1); BASOPHILS % 0.7 % (0.0-1.0); EOSINOPHILS # (AUTO) 0.1 (0.0-0.4); EOSINOPHILS % 1.2 % (0.0-6.0); HEMATOCRIT 43.9 % (38.2-49.6); HEMOGLOBIN 14.3 g/dL (14.0-18.0); LYMPHOCYTES # (AUTO) 2.4 (1.0-3.2); LYMPHOCYTES % 26.2 % (18.0-39.1); MEAN CORPUSCULAR HGB CONC 32.6 g/dL (31-35); MONOCYTES # (AUTO) 0.8 (0.2-0.8); MONOCYTES % 8.3 % (4.4-11.3); NEUTROPHILS # (AUTO) 5.7 (2.1-6.9); PLATELET COUNT 236 x10e3/uL (140-360); RED BLOOD COUNT 5.29 x10e6/uL (4.3-5.7); RED CELL DISTRIBUTION WIDTH 15.3 % (11.7-14.4)
[2020-10-12 23:12] LABS: CLARITY,URINE CLEAR (CLEAR); COLOR,URINE YELLOW (YELLOW); KETONES,URINE NEGATIVE (NEGATIVE); LEUKOCYTE ESTERASE ,URINE NEGATIVE (NEGATIVE); NITRITE,URINE NEGATIVE (NEGATIVE); PROTEIN,URINE DIPSTICK NEGATIVE (NEGATIVE); URINE UROBILINOGEN 0.2 mg/dL (0.2 - 1)
[2020-10-12 23:14] LABS: AMPHETAMINES SCREEN,URINE NEGATIVE (NEGATIVE); BENZODIAZEPINES SCREEN,URINE NEGATIVE (NEGATIVE); PHENCYCLIDINE SCREEN,URINE NEGATIVE (NEGATIVE)
[2020-10-12 23:17] LABS: ALANINE AMINOTRANSFERASE 24 IU/L (0-55); ALBUMIN 3.6 g/dL (3.5-5.0); ALBUMIN/GLOBULIN RATIO 0.9 (0.8-2.0); ALKALINE PHOSPHATASE 78 IU/L (40-150); ANION GAP 18.8 mmol/L (8-16); BLOOD UREA NITROGEN 6 mg/dL (7-26); BUN/CREATININE RATIO 6 (6-25); CALCIUM 8.8 mg/dL (8.4-10.2); CARBON DIOXIDE 20 mmol/L (22-29); CHLORIDE 105 mmol/L (98-107); CREATINE KINASE 101 IU/L (30-200); CREATININE, SERUM 0.99 mg/dL (0.72-1.25); EST GLOMERULAR FILTRATION RATE 81 ML/MIN (60-); GLUCOSE 96 mg/dL (74-118); POTASSIUM 3.8 mmol/L (3.5-5.1); SODIUM 140 mmol/L (136-145)
[2020-10-12 23:23] LABS: BACTERIA,URINE RARE /HPF; EPITHELIAL CELLS,URINE RARE /LPF; WBC,URINE (MAN) 0-5 /HPF (0-5)
== END 2020-10-12 23:50 | disposition left against medical advice (07) ==
LOC: ER 22:55
DX: R07.9 Chest pain, unspecified (principal); F14.10 Cocaine abuse, uncomplicated; F12.10 Cannabis abuse, uncomplicated; I50.9 Heart failure, unspecified; Z95.810 Presence of automatic (implantable) cardiac defibrillator; E03.9 Hypothyroidism, unspecified; Z53.29 Procedure and treatment not carried out because of patient's decision for other reasons
CPT/HCPCS: 36415; 80053; 80307; 81001; 82550; 82553; 83880; 84484; 85025; 93005; 99284

== ENCOUNTER 2021-10-11 16:54 | Observation (INO) | payer SELFPAY ==
[~2021-10-11] VITALS: Ht 182.9 cm; Wt 90.7 kg
[2021-10-11] MEDS ORDERED: ASPIRIN 81 MG CHEW TAB PO ONE (17:15)
[2021-10-11 17:20] LABS: BASOPHILS # (AUTO) 0.1 (0.0-0.1); BASOPHILS % 0.7 % (0.0-1.0); EOSINOPHILS # (AUTO) 0.1 (0.0-0.4); EOSINOPHILS % 0.8 % (0.0-6.0); HEMATOCRIT 36.6 % (38.2-49.6); LYMPHOCYTES % 22.5 % (18.0-39.1); MEAN CORPUSCULAR HEMOGLOBIN 24.7 pg (28-32); MEAN CORPUSCULAR HGB CONC 30.1 g/dL (31-35); MEAN CORPUSCULAR VOLUME 82.1 fL (81-99); MONOCYTES # (AUTO) 0.9 (0.2-0.8); NEUTROPHILS # (AUTO) 5.8 (2.1-6.9); NEUTROPHILS % 65.7 % (38.7-80.0); PLATELET COUNT 245 x10e3/uL (140-360); RED BLOOD COUNT 4.46 x10e6/uL (4.3-5.7); RED CELL DISTRIBUTION WIDTH 21.1 % (11.7-14.4)
[2021-10-11] MEDS ORDERED: ONDANSETRON HCL INJ 2MG/ML 2ML 2 MG/ML VIAL IV ONE (17:25)
[2021-10-11] MEDS ORDERED: Morphine 4mg INJECTION 4 MG/ML INJ IV ONE (17:30)
[2021-10-11] MEDS ORDERED: Morphine 2mg Syringe 2 MG/ML SYR ONE (17:40)
[2021-10-11 17:42] LABS: ALBUMIN 3.2 g/dL (3.5-5.0); ALBUMIN/GLOBULIN RATIO 0.8 (0.8-2.0); ANION GAP 19.4 mmol/L (8-16); CALCIUM 8.2 mg/dL (8.4-10.2); CREATININE, SERUM 0.98 mg/dL (0.72-1.25); POTASSIUM 3.4 mmol/L (3.5-5.1)
[2021-10-11 17:48] LABS: CREATINE KINASE MB 1.7 ng/mL (0-5.0)
[2021-10-11] MEDS ORDERED: SODIUM CHLORIDE FLUSH 10 ML SYR INJ PRN (18:15)
[2021-10-11] MEDS ORDERED: FENTANYL CITRATE/PF 100MCG/2 ML INJ IV ONE (18:30)
[2021-10-11] MEDS: ONDANSETRON HCL INJ 2MG/ML 2ML 2 MG/ML VIAL IV PRN (18:33)
[2021-10-11] MEDS ORDERED: FENTANYL CITRATE/PF 100MCG/2 ML INJ ONE (18:45)
[2021-10-11 20:46] LABS: CREATINE KINASE MB 1.5 ng/mL (0-5.0)
[2021-10-11 21:17] VITALS: BP 122/83
[2021-10-11 21:22] VITALS: BP 122/83
[2021-10-11] MEDS: Morphine 4mg INJECTION 4 MG/ML INJ IV PRN (21:45)
[2021-10-12] VITALS: BP 119/85
[2021-10-12] MEDS ORDERED: OMEPRAZOLE40 MG PO (00:09)
[2021-10-12] MEDS ORDERED: ELIQUIS5 MG PO (00:09)
[2021-10-12] MEDS: Morphine 4mg INJECTION 4 MG/ML INJ IV PRN ×2 (01:40→05:45)
[2021-10-12 04:00] VITALS: BP 113/91
[2021-10-12 06:03] LABS: AMPHETAMINES SCREEN,URINE NEGATIVE (NEGATIVE); BENZODIAZEPINES SCREEN,URINE NEGATIVE (NEGATIVE); PHENCYCLIDINE SCREEN,URINE NEGATIVE (NEGATIVE)
[2021-10-12 06:12] LABS: BASOPHILS % 0.6 % (0.0-1.0); EOSINOPHILS # (AUTO) 0.1 (0.0-0.4); EOSINOPHILS % 1.4 % (0.0-6.0); HEMOGLOBIN 10.5 g/dL (14.0-18.0); LYMPHOCYTES # (AUTO) 1.7 (1.0-3.2); LYMPHOCYTES % 24.2 % (18.0-39.1); MEAN CORPUSCULAR HEMOGLOBIN 24.5 pg (28-32); MEAN CORPUSCULAR VOLUME 81.6 fL (81-99); MONOCYTES # (AUTO) 0.7 (0.2-0.8); MONOCYTES % 9.3 % (4.4-11.3); NEUTROPHILS # (AUTO) 4.6 (2.1-6.9); NEUTROPHILS % 64.1 % (38.7-80.0); PLATELET COUNT 209 x10e3/uL (140-360); RED BLOOD COUNT 4.29 x10e6/uL (4.3-5.7); RED CELL DISTRIBUTION WIDTH 21.2 % (11.7-14.4)
[2021-10-12 06:35] LABS: ALBUMIN 2.9 g/dL (3.5-5.0); ALBUMIN/GLOBULIN RATIO 0.8 (0.8-2.0); ANION GAP 14.6 mmol/L (8-16); CREATININE, SERUM 1.03 mg/dL (0.72-1.25); POTASSIUM 3.6 mmol/L (3.5-5.1)
[2021-10-12 07:26] LABS: CREATINE KINASE MB 1.4 ng/mL (0-5.0)
[2021-10-12] MEDS ORDERED: PANTOPRAZOLE SOD 40 MG TABEC PO SCH (07:30)
[2021-10-12 08:01] VITALS: BP 105/76
[2021-10-12] MEDS: APIXABAN 5 MG TABLET PO SCH ×2 (09:31→17:48)
[2021-10-12] MEDS ORDERED: LISINOPRIL 20 MG TAB PO SCH (10:00)
[2021-10-12] MEDS ORDERED: ASPIRIN 81 MG CHEW TAB PO SCH (10:00)
[2021-10-12] MEDS ORDERED: SPIRONOLACTONE 25 MG TAB PO SCH (10:00)
[2021-10-12] MEDS: CARVEDILOL 3.125 MG TAB PO SCH ×2 (10:00→17:00)
[2021-10-12] MEDS ORDERED: FUROSEMIDE 40 MG TAB PO SCH (10:00)
[2021-10-12 11:45] VITALS: BP 114/82
[2021-10-12] MEDS: Morphine 2mg Syringe 2 MG/ML SYR IV PRN ×2 (11:55→18:28)
[2021-10-12] MEDS: ONDANSETRON HCL INJ 2MG/ML 2ML 2 MG/ML VIAL IV PRN ×2 (11:55→18:27)
[2021-10-12 15:44] VITALS: BP 97/69
[2021-10-13] MEDS ORDERED: LEVOTHYROXINE SODIUM 125 MCG TAB PO SCH (06:30)
== END 2021-10-12 19:00 | disposition home or self-care (01) ==
LOC: ER 17:01 → ERHOLD 18:22 → MED/SURG2 21:11 → INTOOBSV 10-12 16:29 → OBSVTOIN 10-12 16:29
PROVIDERS: ADMIT Family Medicine; ATTEND Family Medicine
DX: T82.897A Other specified complication of cardiac prosthetic devices, implants and grafts, initial encounter (principal); Z20.822 Contact with and (suspected) exposure to COVID-19; Z95.810 Presence of automatic (implantable) cardiac defibrillator; I11.0 Hypertensive heart disease with heart failure; I50.22 Chronic systolic (congestive) heart failure; I43 Cardiomyopathy in diseases classified elsewhere; Y71.2 Prosthetic and other implants, materials and accessory cardiovascular devices associated with adverse incidents; F14.11 Cocaine abuse, in remission
CPT/HCPCS: 0223U; 36415 ×2; 71045; 80053 ×2; 80307; 82550 ×2; 82553 ×2; 83690; 83880; 84484 ×2; 85025 ×2; 85379; 93005; 93306; 94799; 99284; G0378 ×2; J2270 ×4; J2405 ×2; J3010; S0164

== ENCOUNTER 2022-01-13 16:36 | Observation (INO) | payer SELFPAY ==
[~2022-01-13] VITALS: Ht 188 cm; Wt 90.7 kg
[~2022-01-13 16:36] MED LIST changes: +ELIQUIS5 MG PO; +OMEPRAZOLE40 MG PO
[2022-01-13 16:58] LABS: BASOPHILS # (AUTO) 0.1 (0.0-0.1); BASOPHILS % 0.7 % (0.0-1.0); EOSINOPHILS # (AUTO) 0.2 (0.0-0.4); EOSINOPHILS % 2.1 % (0.0-6.0); HEMATOCRIT 30.6 % (38.2-49.6); HEMOGLOBIN 9.5 g/dL (14.0-18.0); LYMPHOCYTES # (AUTO) 1.7 (1.0-3.2); MEAN CORPUSCULAR HEMOGLOBIN 22.5 pg (28-32); MEAN CORPUSCULAR VOLUME 72.3 fL (81-99); MONOCYTES # (AUTO) 0.9 (0.2-0.8); MONOCYTES % 11.9 % (4.4-11.3); NEUTROPHILS # (AUTO) 4.6 (2.1-6.9); NEUTROPHILS % 62.2 % (38.7-80.0); PLATELET COUNT 261 x10e3/uL (140-360); RED BLOOD COUNT 4.23 x10e6/uL (4.3-5.7); RED CELL DISTRIBUTION WIDTH 19.7 % (11.7-14.4)
[2022-01-13] MEDS ORDERED: SODIUM CHLORIDE FLUSH 10 ML SYR IV PRN (17:00)
[2022-01-13] MEDS ORDERED: ASPIRIN 325 MG TAB PO ONE (17:00)
[2022-01-13 17:08] LABS: INR 1.28; PROTHROMBIN TIME 17.1 seconds (11.9-14.5)
[2022-01-13 17:09] LABS: PARTIAL THROMBOPLASTIN TIME 34.9 seconds (23.8-35.5)
[2022-01-13 17:15] LABS: ALBUMIN 2.9 g/dL (3.5-5.0); ALBUMIN/GLOBULIN RATIO 0.8 (0.8-2.0); CALCIUM 8.5 mg/dL (8.4-10.2); CREATININE, SERUM 0.91 mg/dL (0.72-1.25)
[2022-01-13] MEDS ORDERED: FUROSEMIDE INJ 10 MG/ML 4 ML VIAL IV ONE (17:30)
[2022-01-13 17:54] LABS: CLARITY,URINE SL CLOUDY (CLEAR); COLOR,URINE YELLOW (YELLOW); KETONES,URINE NEGATIVE (NEGATIVE); LEUKOCYTE ESTERASE ,URINE NEGATIVE (NEGATIVE); NITRITE,URINE NEGATIVE (NEGATIVE); PROTEIN,URINE DIPSTICK NEGATIVE (NEGATIVE); URINE UROBILINOGEN 0.2 mg/dL (0.2 - 1)
[2022-01-13 17:58] LABS: AMPHETAMINES SCREEN,URINE NEGATIVE (NEGATIVE); BENZODIAZEPINES SCREEN,URINE NEGATIVE (NEGATIVE); PHENCYCLIDINE SCREEN,URINE NEGATIVE (NEGATIVE)
[2022-01-13] MEDS ORDERED: ASPIRIN 81 MG CHEW TAB PO ONE (18:00)
[2022-01-13] MEDS: FENTANYL CITRATE/PF 100MCG/2 ML INJ IV PRN ×2 (18:05→21:11)
[2022-01-13] MEDS: ONDANSETRON HCL INJ 2MG/ML 2ML 2 MG/ML VIAL IV PRN ×2 (19:22→23:10)
[2022-01-13] MEDS: Morphine 4mg INJECTION 4 MG/ML INJ IV PRN ×4 (19:22→23:10)
[2022-01-13] MEDS ORDERED: ENTRESTO 24 MG1 EACH (23:19)
[2022-01-13] MEDS ORDERED: TRAMADOL HCL 50 MG TAB PO PRN (23:30)
[2022-01-13] MEDS ORDERED: BENZONATATE 100 MG CAP PO PRN (23:30)
[2022-01-13] MEDS ORDERED: ONDANSETRON HCL INJ 2MG/ML 2ML 2 MG/ML VIAL IV PRN (23:30)
[2022-01-13] MEDS ORDERED: ACETAMINOPHEN 325 MG TAB PO PRN (23:30)
[2022-01-13] MEDS ORDERED: MELATONIN 5 MG TABLET PO PRN (23:30)
[2022-01-13] MEDS ORDERED: DEXTROSE 50% SYRINGE 50 ML IV PRN (23:30)
[2022-01-13] MEDS ORDERED: DIPHENHYDRAMINE HCL 25 MG CAP PO PRN (23:30)
[2022-01-13] MEDS ORDERED: POTASSIUM CHLORIDE 20 MEQ TAB CR PO PRN (23:30)
[2022-01-13] MEDS ORDERED: ALBUTEROL/IPRATROPIUM 3 ML NEB NEB PRN (23:30)
[2022-01-13] MEDS ORDERED: DOCUSATE SODIUM 100 MG CAP PO PRN (23:30)
[2022-01-13] MEDS ORDERED: HYDRALAZINE HCL 20 MG/ML VIAL IV PRN (23:30)
[2022-01-13] MEDS ORDERED: SIMETHICONE 80 MG CHEW PO PRN (23:30)
[2022-01-13] MEDS ORDERED: LIDOCAINE 4% PATCH TP PRN (23:30)
[2022-01-13] MEDS ORDERED: VALSARTAN/SACUBITRIL 24MG/26MG 1 EA TAB PO ONE (23:45)
[2022-01-13] MEDS ORDERED: POTASSIUM CHLORIDE 20 MEQ TAB CR PO SCH (23:45)
[2022-01-14] VITALS: BP 119/87
[2022-01-14] MEDS: POTASSIUM CHLORIDE 20 MEQ TAB CR PO SCH ×2 (00:29→07:31)
[2022-01-14] MEDS: FUROSEMIDE INJ 10 MG/ML 4 ML VIAL IV SCH ×4 (00:29→11:57)
[2022-01-14] MEDS: APIXABAN 5 MG TABLET PO SCH ×2 (00:29→07:30)
[2022-01-14] MEDS: Morphine 4mg INJECTION 4 MG/ML INJ IV PRN ×3 (03:36→11:57)
[2022-01-14 06:16] LABS: BASOPHILS # (AUTO) 0.1 (0.0-0.1); BASOPHILS % 0.9 % (0.0-1.0); EOSINOPHILS # (AUTO) 0.2 (0.0-0.4); HEMATOCRIT 30.7 % (38.2-49.6); HEMOGLOBIN 9.6 g/dL (14.0-18.0); LYMPHOCYTES # (AUTO) 2.1 (1.0-3.2); LYMPHOCYTES % 30.3 % (18.0-39.1); MEAN CORPUSCULAR HEMOGLOBIN 22.1 pg (28-32); MEAN CORPUSCULAR HGB CONC 31.3 g/dL (31-35); MEAN CORPUSCULAR VOLUME 70.7 fL (81-99); MONOCYTES # (AUTO) 0.8 (0.2-0.8); MONOCYTES % 11.8 % (4.4-11.3); NEUTROPHILS # (AUTO) 3.7 (2.1-6.9); NEUTROPHILS % 53.6 % (38.7-80.0); PLATELET COUNT 233 x10e3/uL (140-360); RED BLOOD COUNT 4.34 x10e6/uL (4.3-5.7); RED CELL DISTRIBUTION WIDTH 19.8 % (11.7-14.4)
[2022-01-14] MEDS ORDERED: LEVOTHYROXINE SODIUM 125 MCG TAB PO SCH (06:30)
[2022-01-14 06:31] LABS: ANION GAP 16.1 mmol/L (8-16); CALCIUM 8.2 mg/dL (8.4-10.2); CREATININE, SERUM 0.89 mg/dL (0.72-1.25); POTASSIUM 3.1 mmol/L (3.5-5.1)
[2022-01-14] MEDS ORDERED: VALSARTAN/SACUBITRIL 24MG/26MG 1 EA TAB PO ONE (07:00)
[2022-01-14 07:04] LABS: CHOL/HDL RATIO 5.1 (3.9-4.7); MAGNESIUM 1.8 MG/DL (1.3-2.1)
[2022-01-14 07:12] LABS: CREATINE KINASE MB 1.7 ng/mL (0-5.0)
[2022-01-14 07:19] LABS: THYROID STIMULATING HORMONE 6.737 uIU/mL (0.350-4.940)
[2022-01-14] MEDS ORDERED: PANTOPRAZOLE SOD 40 MG TABEC PO SCH (07:30)
[2022-01-14 08:29] VITALS: BP 119/87
[2022-01-14 08:35] VITALS: BP 123/94
[2022-01-14] MEDS ORDERED: CARVEDILOL 3.125 MG TAB PO SCH (09:00)
[2022-01-14] MEDS ORDERED: POTASSIUM CHLORIDE 20 MEQ TAB CR PO SCH (09:00)
[2022-01-14] MEDS ORDERED: ASPIRIN 81 MG CHEW TAB PO SCH (09:00)
[2022-01-14] MEDS ORDERED: FUROSEMIDE INJ 10 MG/ML 4 ML VIAL IV SCH (09:00)
[2022-01-14 11:53] VITALS: BP 106/83
[2022-01-14] MEDS ORDERED: FUROSEMIDE INJ 100 MG in SODIUM CHLORIDE 0.9% 90 ML IV SCH (13:30)
[2022-01-14] MEDS ORDERED: POTASSIUM CHLORIDE 20 MEQ TAB CR PO ONE (13:30)
== END 2022-01-14 14:00 | disposition left against medical advice (07) ==
LOC: ER 16:52 → ERHOLD 17:52 → MED/SURG2 20:53
PROVIDERS: ADMIT Internal Medicine; ATTEND Internal Medicine
DX: I11.0 Hypertensive heart disease with heart failure (principal); I50.43 Acute on chronic combined systolic (congestive) and diastolic (congestive) heart failure; F11.10 Opioid abuse, uncomplicated; F14.10 Cocaine abuse, uncomplicated; F12.10 Cannabis abuse, uncomplicated; I42.9 Cardiomyopathy, unspecified; Z95.810 Presence of automatic (implantable) cardiac defibrillator; Z53.21 Procedure and treatment not carried out due to patient leaving prior to being seen by health care provider; Z20.822 Contact with and (suspected) exposure to COVID-19
CPT/HCPCS: 0223U; 36415 ×2; 71045; 78580; 80048; 80053; 80061; 80307; 81001; 82550; 82553; 83036; 83735; 83880; 84100; 84443; 84484 ×2; 85025 ×2; 85379; 85610; 85730; 93005; 94760; 94799; 99284; A9540; G0378 ×2; J1940 ×3; J2270 ×2; J2405; J3010; J7050; S0164

== ENCOUNTER 2022-01-29 03:19 | Inpatient (IN) | payer BC, MEDICAID ==
[~2022-01-29] VITALS: Ht 182.9 cm; Wt 90.7 kg
[~2022-01-29 03:19] MED LIST changes: +ENTRESTO 24 MG1 EACH
[2022-01-29] MEDS ORDERED: FUROSEMIDE INJ 10 MG/ML 4 ML VIAL IV ONE (03:30)
[2022-01-29] MEDS ORDERED: ASPIRIN 325 MG TAB PO ONE (03:30)
[2022-01-29 03:35] LABS: BASOPHILS # (AUTO) 0.1 (0.0-0.1); BASOPHILS % 0.6 % (0.0-1.0); EOSINOPHILS # (AUTO) 0.1 (0.0-0.4); EOSINOPHILS % 1.1 % (0.0-6.0); HEMOGLOBIN 10.6 g/dL (14.0-18.0); LYMPHOCYTES # (AUTO) 2.4 (1.0-3.2); LYMPHOCYTES % 30.1 % (18.0-39.1); MEAN CORPUSCULAR HEMOGLOBIN 21.9 pg (28-32); MEAN CORPUSCULAR HGB CONC 29.4 g/dL (31-35); MEAN CORPUSCULAR VOLUME 74.4 fL (81-99); MONOCYTES # (AUTO) 0.8 (0.2-0.8); MONOCYTES % 10.4 % (4.4-11.3); NEUTROPHILS # (AUTO) 4.6 (2.1-6.9); NEUTROPHILS % 57.4 % (38.7-80.0); PLATELET COUNT 296 x10e3/uL (140-360); RED BLOOD COUNT 4.84 x10e6/uL (4.3-5.7); RED CELL DISTRIBUTION WIDTH 21.5 % (11.7-14.4)
[2022-01-29] MEDS: SODIUM CHLORIDE FLUSH 10 ML SYR IV PRN ×2 (03:40→20:50)
[2022-01-29] MEDS ORDERED: ONDANSETRON HCL INJ 2MG/ML 2ML 2 MG/ML VIAL IV STA (03:41)
[2022-01-29 03:44] LABS: INR 1.23; PROTHROMBIN TIME 16.6 seconds (11.9-14.5)
[2022-01-29 03:45] LABS: PARTIAL THROMBOPLASTIN TIME 37.3 seconds (23.8-35.5)
[2022-01-29] MEDS ORDERED: Morphine 4mg INJECTION 4 MG/ML INJ IV ONE (03:45)
[2022-01-29 03:52] LABS: ALBUMIN 3.2 g/dL (3.5-5.0); ALBUMIN/GLOBULIN RATIO 0.7 (0.8-2.0); ANION GAP 18.3 mmol/L (8-16); CALCIUM 9.1 mg/dL (8.4-10.2); POTASSIUM 3.3 mmol/L (3.5-5.1)
[2022-01-29] MEDS ORDERED: ONDANSETRON HCL INJ 2MG/ML 2ML 2 MG/ML VIAL ONE (03:59)
[2022-01-29] MEDS ORDERED: POTASSIUM CHLORIDE 20 MEQ TAB CR PO STA (04:11)
[2022-01-29] MEDS ORDERED: Morphine 4mg INJECTION 4 MG/ML INJ IV PRN (04:30)
[2022-01-29] MEDS ORDERED: ASPIRIN 81 MG CHEW TAB PO ONE (04:30)
[2022-01-29] MEDS ORDERED: FENTANYL CITRATE/PF 100MCG/2 ML INJ IV ONE (06:30)
[2022-01-29] MEDS ORDERED: FENTANYL CITRATE/PF 100MCG/2 ML INJ ONE (06:31)
[2022-01-29] MEDS: Morphine 4mg INJECTION 4 MG/ML INJ IV PRN ×4 (09:05→20:50)
[2022-01-29 11:52] LABS: CREATINE KINASE MB 1.7 ng/mL (0-5.0)
[2022-01-29 16:00] VITALS: BP 108/82
[2022-01-29] MEDS: FUROSEMIDE INJ 10 MG/ML 4 ML VIAL IV SCH (16:43)
[2022-01-29] MEDS: VALSARTAN/SACUBITRIL 24MG/26MG 1 EA TAB PO SCH (16:43)
[2022-01-29] MEDS: CARVEDILOL 3.125 MG TAB PO SCH (16:44)
[2022-01-29] MEDS: APIXABAN 5 MG TABLET PO SCH (16:44)
[2022-01-29 20:00] VITALS: BP 114/82
[2022-01-29] MEDS: ONDANSETRON HCL INJ 2MG/ML 2ML 2 MG/ML VIAL IV PRN (20:50)
[2022-01-29 21:22] LABS: CREATINE KINASE MB 1.8 ng/mL (0-5.0)
[2022-01-30] VITALS (7 sets, daily range): BP systolic 100–104; BP diastolic 72–83
[2022-01-30] MEDS: SODIUM CHLORIDE FLUSH 10 ML SYR IV PRN ×2 (01:00→21:48)
[2022-01-30] MEDS: ONDANSETRON HCL INJ 2MG/ML 2ML 2 MG/ML VIAL IV PRN (01:00)
[2022-01-30] MEDS: Morphine 4mg INJECTION 4 MG/ML INJ IV PRN ×6 (01:00→21:48)
[2022-01-30 05:57] LABS: BASOPHILS # (AUTO) 0.1 (0.0-0.1); BASOPHILS % 1.3 % (0.0-1.0); EOSINOPHILS # (AUTO) 0.1 (0.0-0.4); EOSINOPHILS % 2.2 % (0.0-6.0); LYMPHOCYTES # (AUTO) 2.4 (1.0-3.2); LYMPHOCYTES % 37.9 % (18.0-39.1); MEAN CORPUSCULAR HEMOGLOBIN 22.1 pg (28-32); MEAN CORPUSCULAR HGB CONC 30.3 g/dL (31-35); MEAN CORPUSCULAR VOLUME 72.8 fL (81-99); MONOCYTES # (AUTO) 0.6 (0.2-0.8); NEUTROPHILS # (AUTO) 3.1 (2.1-6.9); NEUTROPHILS % 49.3 % (38.7-80.0); PLATELET COUNT 269 x10e3/uL (140-360); RED BLOOD COUNT 4.53 x10e6/uL (4.3-5.7); RED CELL DISTRIBUTION WIDTH 21.8 % (11.7-14.4)
[2022-01-30] MEDS: LEVOTHYROXINE SODIUM 125 MCG TAB PO SCH (06:20)
[2022-01-30 06:21] LABS: ALBUMIN 2.8 g/dL (3.5-5.0); ALBUMIN/GLOBULIN RATIO 0.7 (0.8-2.0); ANION GAP 19.6 mmol/L (8-16); CALCIUM 8.6 mg/dL (8.4-10.2); CREATININE, SERUM 1.13 mg/dL (0.72-1.25); POTASSIUM 3.6 mmol/L (3.5-5.1)
[2022-01-30 06:51] LABS: CREATINE KINASE MB 1.5 ng/mL (0-5.0)
[2022-01-30] MEDS: FUROSEMIDE INJ 10 MG/ML 4 ML VIAL IV SCH ×2 (09:11→17:30)
[2022-01-30] MEDS: VALSARTAN/SACUBITRIL 24MG/26MG 1 EA TAB PO SCH ×2 (09:12→17:31)
[2022-01-30] MEDS: SPIRONOLACTONE 25 MG TAB PO SCH (09:12)
[2022-01-30] MEDS: PANTOPRAZOLE SOD 40 MG TABEC PO SCH (09:12)
[2022-01-30] MEDS: APIXABAN 5 MG TABLET PO SCH ×2 (09:12→17:31)
[2022-01-30] MEDS: CARVEDILOL 3.125 MG TAB PO SCH ×2 (09:13→17:31)
[2022-01-30 16:27] LABS: COLOR,URINE YELLOW (YELLOW)
[2022-01-30 16:28] LABS: CLARITY,URINE CLEAR (CLEAR); KETONES,URINE NEGATIVE (NEGATIVE); LEUKOCYTE ESTERASE ,URINE NEGATIVE (NEGATIVE); NITRITE,URINE NEGATIVE (NEGATIVE); PROTEIN,URINE DIPSTICK NEGATIVE (NEGATIVE); URINE UROBILINOGEN 0.2 mg/dL (0.2 - 1)
[2022-01-30 16:36] LABS: AMPHETAMINES SCREEN,URINE NEGATIVE (NEGATIVE); BENZODIAZEPINES SCREEN,URINE NEGATIVE (NEGATIVE); PHENCYCLIDINE SCREEN,URINE NEGATIVE (NEGATIVE)
[2022-01-30 16:41] LABS: WBC,URINE (MAN) 0-5 /HPF (0-5)
[2022-01-31] VITALS (9 sets, daily range): BP systolic 93–122; BP diastolic 47–93
[2022-01-31] MEDS: Morphine 4mg INJECTION 4 MG/ML INJ IV PRN ×5 (01:49→22:30)
[2022-01-31] MEDS: LEVOTHYROXINE SODIUM 125 MCG TAB PO SCH (06:14)
[2022-01-31] MEDS: SPIRONOLACTONE 25 MG TAB PO SCH (08:38)
[2022-01-31] MEDS: CARVEDILOL 3.125 MG TAB PO SCH ×2 (08:38→17:00)
[2022-01-31] MEDS: FUROSEMIDE INJ 10 MG/ML 4 ML VIAL IV SCH ×2 (08:38→17:01)
[2022-01-31] MEDS: VALSARTAN/SACUBITRIL 24MG/26MG 1 EA TAB PO SCH ×2 (08:39→17:00)
[2022-01-31] MEDS: PANTOPRAZOLE SOD 40 MG TABEC PO SCH (08:41)
[2022-01-31] MEDS: APIXABAN 5 MG TABLET PO SCH ×2 (08:41→17:03)
[2022-01-31] MEDS ORDERED: ONDANSETRON HCL 4 MG ORAL DISINTEGRATING TAB PO PRN (11:15)
[2022-02-01 00:57] VITALS: BP 107/82
[2022-02-01] MEDS: Morphine 4mg INJECTION 4 MG/ML INJ IV PRN ×2 (03:18→07:20)
[2022-02-01 05:22] VITALS: BP 107/82
[2022-02-01 05:41] LABS: BASOPHILS # (AUTO) 0.1 (0.0-0.1); BASOPHILS % 1.5 % (0.0-1.0); EOSINOPHILS # (AUTO) 0.1 (0.0-0.4); EOSINOPHILS % 1.8 % (0.0-6.0); HEMATOCRIT 34.4 % (38.2-49.6); HEMOGLOBIN 9.9 g/dL (14.0-18.0); LYMPHOCYTES % 35.5 % (18.0-39.1); MEAN CORPUSCULAR HEMOGLOBIN 21.7 pg (28-32); MEAN CORPUSCULAR HGB CONC 28.8 g/dL (31-35); MEAN CORPUSCULAR VOLUME 75.4 fL (81-99); MONOCYTES # (AUTO) 0.7 (0.2-0.8); MONOCYTES % 11.8 % (4.4-11.3); NEUTROPHILS # (AUTO) 2.7 (2.1-6.9); PLATELET COUNT 239 x10e3/uL (140-360); RED BLOOD COUNT 4.56 x10e6/uL (4.3-5.7); RED CELL DISTRIBUTION WIDTH 21.8 % (11.7-14.4)
[2022-02-01] MEDS: LEVOTHYROXINE SODIUM 125 MCG TAB PO SCH (05:54)
[2022-02-01 06:12] LABS: ALBUMIN 2.7 g/dL (3.5-5.0); ALBUMIN/GLOBULIN RATIO 0.7 (0.8-2.0); ANION GAP 18.7 mmol/L (8-16); CALCIUM 8.6 mg/dL (8.4-10.2); CHOL/HDL RATIO 5.7 (3.9-4.7); CREATININE, SERUM 0.98 mg/dL (0.72-1.25); POTASSIUM 3.7 mmol/L (3.5-5.1)
[2022-02-01 06:37] LABS: THYROID STIMULATING HORMONE 4.492 uIU/mL (0.350-4.940)
[2022-02-01 08:00] VITALS: BP 110/82
[2022-02-01 08:46] LABS: ANISOCYTOSIS MODERATE; HYPOCHROMASIA MODERATE; MICROCYTOSIS MODERATE; OVALOCYTES FEW; PLATELET ESTIMATE ADEQUATE; PLATELET MORPHOLOGY COMMENT NORMAL; RBC MORPHOLOGY COMMENT ABNORMAL
[2022-02-01] MEDS ORDERED: ALDACTONE25 MG PO (08:56)
[2022-02-01 09:00] VITALS: BP 110/82
[2022-02-01] MEDS ORDERED: SPIRONOLACTONE 25 MG TAB PO SCH (09:00)
[2022-02-01] MEDS: APIXABAN 5 MG TABLET PO SCH (09:31)
[2022-02-01] MEDS: FUROSEMIDE INJ 10 MG/ML 4 ML VIAL IV SCH (09:31)
[2022-02-01] MEDS: VALSARTAN/SACUBITRIL 24MG/26MG 1 EA TAB PO SCH (09:31)
[2022-02-01] MEDS: CARVEDILOL 3.125 MG TAB PO SCH (09:32)
[2022-02-01] MEDS: PANTOPRAZOLE SOD 40 MG TABEC PO SCH (09:32)
== END 2022-02-01 10:45 | disposition home or self-care (01) | DRG 291 ==
LOC: ER 03:28 → ERHOLD 04:27 → MED/SURG 16:22 → INTOOBSV 01-30 13:30 → OBSVTOIN 01-30 13:30
PROVIDERS: ADMIT Internal Medicine; ATTEND Internal Medicine
DX: I11.0 Hypertensive heart disease with heart failure (principal); I50.43 Acute on chronic combined systolic (congestive) and diastolic (congestive) heart failure; E87.6 Hypokalemia; E03.9 Hypothyroidism, unspecified; K21.9 Gastro-esophageal reflux disease without esophagitis; Z86.718 Personal history of other venous thrombosis and embolism; Z79.01 Long term (current) use of anticoagulants; Z20.822 Contact with and (suspected) exposure to COVID-19; I42.8 Other cardiomyopathies; F14.11 Cocaine abuse, in remission; E78.5 Hyperlipidemia, unspecified; Z88.6 Allergy status to analgesic agent; Z88.8 Allergy status to other drugs, medicaments and biological substances; Z95.810 Presence of automatic (implantable) cardiac defibrillator; Z87.891 Personal history of nicotine dependence
CPT/HCPCS: 36415; 71045; 80053; 80061; 80307; 81001; 82550; 82553; 83690; 83735; 83880; 84443; 84484; 85025; 85610; 85730; 93005; 99285; G0378; J1940; J2270; J2405; J3010